=== PATIENT | male | born 1950 | race Caucasian/White ===

== ENCOUNTER 2017-06-13 14:15 | Inpatient (IN) | payer OTHER ==
[~2017-06-13] VITALS: Ht 176.5 cm; Wt 148.6 kg
[2017-06-13 11:37] VITALS: BP 134/59
[2017-06-13 12:43] LABS: APPEARANCE,URINE Clear (CLEAR); BILIRUBIN,URINE Negative (NEGATIVE); COLOR,URINE Yellow (YELLOW); GLUCOSE, URINE (UA) 250 mg/dL (NEGATIVE); KETONES,URINE Negative (NEGATIVE); LEUKOCYTE ESTERASE ,URINE Negative (NEGATIVE); NITRATE,URINE Negative (NEGATIVE); OCCULT BLOOD,URINE Negative (NEGATIVE); PH,URINE 5.5 (5.0-8.0); PROTEIN,URINE POS 2+ (NEGATIVE); UROBILINOGEN,URINE 0.2 mg/dL (0.2-1.0)
[2017-06-13 12:54] LABS: CREATININE 1.3 mg/dL (0.5-1.5); POTASSIUM 4.7 mmol/L (3.5-5.1)
[2017-06-13 13:05] LABS: BACTERIA,URINE Rare /HPF (None Seen); RBC,URINE 0-1 /HPF (0-1); SQUAMOUS EPITHELIAL CELL,UR Rare /HPF (0-2); WBC,URINE 0-1 /HPF (0-1)
[~2017-06-13 14:15] MED LIST: ALBUTEROL IH; AMLO5TAB2 PO; ASPI-1181 PO; CARV25TA PO; FURO40TA5 PO; INSU100I3 SQ; INSULIN NPH SQ; ISOS60TA4 PO; LORA10TA7 PO; METF750T2 PO; PRIM50TA29 PO; ROSU40TA20 PO; SPIR25TA6 PO
[2017-06-16] VITALS (19 sets, daily range): BP systolic 107–153; BP diastolic 36–71
[2017-06-16] MEDS: CEFAZOLIN SODIUM 1 GM VIAL IVP SCH ×2 (05:00→08:30)
[2017-06-16] MEDS ORDERED: SODIUM CHLORIDE 0.9% 1000ML 1,000 ML IV ONE (06:49)
[2017-06-16] MEDS ORDERED: CEFAZOLIN SODIUM 1 GM VIAL ONE (07:40)
[2017-06-16] MEDS ORDERED: BUPIVACAINE/PF 0.25% 30ML VIAL IJ ONE (07:40)
[2017-06-16] MEDS ORDERED: EPINEPHRINE 1 MG/ML AMPULE ONE (07:41)
[2017-06-16] MEDS ORDERED: PROPOFOL 10 MG/ML 20ML VIAL IV ONE (07:56)
[2017-06-16] MEDS ORDERED: FENTANYL CITRATE PF 50 MCG/1 ML 2ML VIAL ONE ×3 (07:56→10:58)
[2017-06-16] MEDS ORDERED: MIDAZOLAM HCL 1 MG/ML 2ML VIAL ONE (07:56)
[2017-06-16] MEDS ORDERED: ROCURONIUM BROMIDE 10MG/1ML 5ML VL ONE ×2 (07:57→12:24)
[2017-06-16] MEDS ORDERED: LIDOCAINE PF 2% 5ML ABBOJECT ONE (07:57)
[2017-06-16] MEDS ORDERED: ROPIVACAINE 0.5% 5MG/ML 30ML IJ ONE (07:59)
[2017-06-16] MEDS ORDERED: SUCCINYLCHOLINE CHLORIDE 20 MG/ML 10 ML VIAL ONE (07:59)
[2017-06-16] MEDS ORDERED: EPHEDRINE SULFATE 50 MG/ML AMPULE ONE (08:41)
[2017-06-16] MEDS: TRANEXAMIC ACID 1000MG/10ML IV ONE ×2 (08:45→10:35)
[2017-06-16] MEDS ORDERED: VANCOMYCIN HCL 1 GM VIAL ONE (09:58)
[2017-06-16] MEDS ORDERED: CALCIUM CARBONATE 500 MG TABLET PO PRN (11:00)
[2017-06-16] MEDS ORDERED: KETOROLAC TROMETHAMINE 15MG/ML IV PRN (11:00)
[2017-06-16] MEDS ORDERED: POTASSIUM CHLORIDE 20 MEQ ERTAB PO PRN (11:00)
[2017-06-16] MEDS ORDERED: DiphenhydrAMINE HCL 50 MG/ML VIAL IVP PRN (11:00)
[2017-06-16] MEDS ORDERED: POTASSIUM CHLORIDE 10% ELIXIR 20 MEQ/15 ML UDCUP PO PRN (11:00)
[2017-06-16] MEDS ORDERED: TEMAZEPAM 15 MG CAPSULE PO PRN (11:00)
[2017-06-16] MEDS ORDERED: POTASSIUM CHLORIDE 20MEQ/100ML 100 ML IV PRN (11:00)
[2017-06-16] MEDS ORDERED: FERROUS FUMARATE 324 MG TABLET PO PRN (11:00)
[2017-06-16] MEDS ORDERED: ONDANSETRON HCL 4 MG/2 ML VIAL IVP PRN (11:00)
[2017-06-16] MEDS ORDERED: TRAMADOL HCL 50 MG TABLET PO PRN (11:00)
[2017-06-16] MEDS ORDERED: LIDOCAINE HCL-MPF 1% 2ML VIAL IVP PRN (11:00)
[2017-06-16] MEDS ORDERED: OXYCODONE HCL 5 MG TAB PO PRN ×2 (11:00)
[2017-06-16] MEDS ORDERED: KETOROLAC TROMETHAMINE 30MG/ML ONE (11:36)
[2017-06-16] MEDS ORDERED: MEPERIDINE-PF 25 MG/ML SYG ONE (11:37)
[2017-06-16] MEDS ORDERED: IPRATROPIUM/ALBUTEROL SULFATE 3 ML SOLUTION IH ONE (12:23)
[2017-06-16] MEDS ORDERED: SODIUM CHLORIDE 0.9% 10 ML VIAL ONE (12:25)
[2017-06-16] MEDS ORDERED: PHENYLEPHRINE HCL 10 MG/ML 1ML VIAL IV ONE (12:25)
[2017-06-16] MEDS ORDERED: NEOSTIGMINE 5MG/5ML SYR IV ONE (12:25)
[2017-06-16] MEDS ORDERED: ONDANSETRON HCL MDV 20ML 2 MG/ML VIAL ONE (12:25)
[2017-06-16] MEDS ORDERED: GLYCOPYRROLATE 0.2 MG/ML 5 ML VIAL ONE (12:25)
[2017-06-16] MEDS ORDERED: ONDANSETRON HCL 4 MG/2 ML VIAL ONE (12:25)
[2017-06-16] MEDS: ACETAMINOPHEN EXTRA STRENGTH 500 MG TABLET PO SCH ×2 (12:45→19:09)
[2017-06-16] MEDS: SODIUM CHLORIDE 0.9% 1000ML 1,000 ML IV SCH ×2 (12:45→20:55)
[2017-06-16] MEDS ORDERED: ALBUTEROL SULFATE 0.083% 2.5 MG/3 ML INH IH PRN (13:30)
[2017-06-16] MEDS: INSULIN HUMULIN R 100 UNIT/ML 3ML SQ SCH ×3 (13:53→21:00)
[2017-06-16] MEDS: CEFAZOLIN 3GM /D5W 100ML 100 ML IV SCH ×2 (18:07→23:48)
[2017-06-16] MEDS: INSULIN LISPRO 100 UNIT/ML 3ML SQ SCH (18:14)
[2017-06-16] MEDS: PREGABALIN 25 MG CAP PO SCH (20:57)
[2017-06-16] MEDS: AMLODIPINE BESYLATE 5 MG TAB PO SCH (20:57)
[2017-06-16] MEDS: CARVEDILOL 25 MG TABLET PO SCH (20:57)
[2017-06-16] MEDS: CELECOXIB 200 MG CAP PO SCH (20:57)
[2017-06-16] MEDS: FAMOTIDINE 20MG TAB 20 MG TAB PO SCH (20:57)
[2017-06-16] MEDS: ASPIRIN 325 MG TABLET PO SCH (20:57)
[2017-06-16] MEDS: METFORMIN HCL 500 MG TABLET PO SCH (20:58)
[2017-06-16] MEDS: FUROSEMIDE 40 MG TABLET PO SCH (20:58)
[2017-06-16] MEDS: ATORVASTATIN CALCIUM 40 MG TABLET PO SCH (20:58)
[2017-06-16] MEDS: INSULIN NPH 100 UNIT/ML 3ML SQ SCH (21:17)
[2017-06-17] VITALS (8 sets, daily range): BP systolic 128–167; BP diastolic 55–74
[2017-06-17] MEDS: ACETAMINOPHEN EXTRA STRENGTH 500 MG TABLET PO SCH ×3 (03:59→19:46)
[2017-06-17 05:05] LABS: HEMATOCRIT 33.8 % (42-54); MEAN CORPUSCULAR HGB CONC 33.8 g/dL (32.0-36.0); MEAN CORPUSCULAR VOLUME 88.7 fL (79-99); PLATELET COUNT (AUTO) 196 K/uL (130-400); RED BLOOD CELL COUNT(AUTO) 3.81 MIL/uL (4.50-6.20); RED CELL DISTRIBUTION WIDTH 15.4 % (11.0-15.5); WHITE BLOOD COUNT (AUTO) 9.5 K/uL (4.8-10.8)
[2017-06-17 05:24] LABS: CREATININE 1.3 mg/dL (0.5-1.5); POTASSIUM 4.2 mmol/L (3.5-5.1)
[2017-06-17] MEDS: INSULIN HUMULIN R 100 UNIT/ML 3ML SQ SCH ×4 (06:38→20:20)
[2017-06-17] MEDS: SODIUM CHLORIDE 0.9% 1000ML 1,000 ML IV SCH (07:00)
[2017-06-17] MEDS: TAMSULOSIN HCL 0.4 MG CAP.ER.24H PO SCH (08:18)
[2017-06-17] MEDS: ASPIRIN 325 MG TABLET PO SCH ×2 (08:18→19:46)
[2017-06-17] MEDS: FUROSEMIDE 40 MG TABLET PO SCH ×2 (08:18→19:46)
[2017-06-17] MEDS: FAMOTIDINE 20MG TAB 20 MG TAB PO SCH ×2 (08:18→19:46)
[2017-06-17] MEDS: CARVEDILOL 25 MG TABLET PO SCH ×2 (08:19→19:45)
[2017-06-17] MEDS: PRIMIDONE 50 MG TAB PO SCH (08:19)
[2017-06-17] MEDS: AMLODIPINE BESYLATE 5 MG TAB PO SCH ×2 (08:19→19:46)
[2017-06-17] MEDS: CELECOXIB 200 MG CAP PO SCH ×2 (08:20→19:45)
[2017-06-17] MEDS: LORATADINE 10 MG TABLET PO SCH (08:20)
[2017-06-17] MEDS: POLYETHYLENE GLYCOL 3350 17 GM POWD.PACK PO SCH (08:20)
[2017-06-17] MEDS: SPIRONOLACTONE 25 MG TAB PO SCH (08:20)
[2017-06-17] MEDS: METFORMIN HCL 500 MG TABLET PO SCH ×2 (08:21→19:45)
[2017-06-17] MEDS: PREGABALIN 25 MG CAP PO SCH ×2 (08:29→19:45)
[2017-06-17] MEDS: ISOSORBIDE MONO 60 MG TAB.SR PO SCH (08:29)
[2017-06-17] MEDS: INSULIN NPH 100 UNIT/ML 3ML SQ SCH ×2 (09:22→20:20)
[2017-06-17] MEDS: INSULIN LISPRO 100 UNIT/ML 3ML SQ SCH ×3 (09:23→16:35)
[2017-06-17] MEDS: ATORVASTATIN CALCIUM 40 MG TABLET PO SCH (19:46)
[2017-06-18] MEDS: ACETAMINOPHEN EXTRA STRENGTH 500 MG TABLET PO SCH ×2 (03:32→10:49)
[2017-06-18 04:18] VITALS: BP 128/65
[2017-06-18] MEDS: INSULIN HUMULIN R 100 UNIT/ML 3ML SQ SCH ×3 (05:45→17:26)
[2017-06-18 07:00] VITALS: BP 144/69
[2017-06-18] MEDS: INSULIN LISPRO 100 UNIT/ML 3ML SQ SCH ×3 (07:31→17:28)
[2017-06-18] MEDS: INSULIN NPH 100 UNIT/ML 3ML SQ SCH (07:32)
[2017-06-18] MEDS ORDERED: ASPI-1012 PO (08:59)
[2017-06-18] MEDS ORDERED: HYDR-309 PO (08:59)
[2017-06-18] MEDS: TAMSULOSIN HCL 0.4 MG CAP.ER.24H PO SCH (09:00)
[2017-06-18] MEDS: POLYETHYLENE GLYCOL 3350 17 GM POWD.PACK PO SCH (09:03)
[2017-06-18] MEDS: ASPIRIN 325 MG TABLET PO SCH (09:03)
[2017-06-18] MEDS: LORATADINE 10 MG TABLET PO SCH (09:04)
[2017-06-18] MEDS: FAMOTIDINE 20MG TAB 20 MG TAB PO SCH (09:04)
[2017-06-18] MEDS: CELECOXIB 200 MG CAP PO SCH (09:04)
[2017-06-18] MEDS: ISOSORBIDE MONO 60 MG TAB.SR PO SCH (09:04)
[2017-06-18] MEDS: FUROSEMIDE 40 MG TABLET PO SCH (09:04)
[2017-06-18] MEDS: PRIMIDONE 50 MG TAB PO SCH (09:04)
[2017-06-18] MEDS: SPIRONOLACTONE 25 MG TAB PO SCH (09:05)
[2017-06-18] MEDS: AMLODIPINE BESYLATE 5 MG TAB PO SCH (09:05)
[2017-06-18] MEDS: METFORMIN HCL 500 MG TABLET PO SCH (09:05)
[2017-06-18] MEDS: CARVEDILOL 25 MG TABLET PO SCH (09:05)
[2017-06-18] MEDS: PREGABALIN 25 MG CAP PO SCH (10:49)
[2017-06-18 11:00] VITALS: BP 142/70
[2017-06-18 15:00] VITALS: BP 116/65
[2017-06-19] MEDS ORDERED: BISACODYL 10 MG SUPP.RECT RC PRN (11:00)
== END 2017-06-18 19:00 | disposition home health service (06) | DRG 470 ==
LOC: EDSTATUS 14:15 → DAHIP 06-16 06:27 → 4AH 06-16 11:32 → EDSEX 06-16 14:15
PROVIDERS: ADMIT Orthopaedic Surgery; ATTEND Orthopaedic Surgery
PROC: 0SRC0J9 Replacement of Right Knee Joint with Synthetic Substitute, Cemented, Open Approach (ICD-10-PCS; principal; 2017-06-16 08:00)
DX: M17.11 Unilateral primary osteoarthritis, right knee (principal); E11.9 Type 2 diabetes mellitus without complications; I10 Essential (primary) hypertension; I25.10 Atherosclerotic heart disease of native coronary artery without angina pectoris; E78.5 Hyperlipidemia, unspecified; G89.29 Other chronic pain; Z95.1 Presence of aortocoronary bypass graft
CPT/HCPCS: 36415; 80048; 81001; 82948; 85027; 88305; 88311; 94640; A4218; J0171; J0330; J0690; J1815; J1885; J2001; J2175; J2250; J2370; J2405; J2704; J2710; J2795; J3010; J3370; J3490; J7030

== ENCOUNTER 2018-07-20 14:00 | Emergency (ER) | payer OTHER ==
[~2018-07-20 14:00] MED LIST changes: -AMLO5TAB2 PO; +AMLO5TAB9 PO; +ASPI-1012 PO; -ASPI-1181 PO; +HYDR-4457 PO
[2018-07-20 14:26] LABS: APPEARANCE,URINE CLOUDY (CLEAR); BILIRUBIN,URINE NEGATIVE (NEGATIVE); COLOR,URINE YELLOW (YELLOW); GLUCOSE, URINE (UA) NEGATIVE (NEGATIVE); KETONES,URINE NEGATIVE (NEGATIVE); LEUKOCYTE ESTERASE ,URINE LARGE (NEGATIVE); NITRATE,URINE POSITIVE (NEGATIVE); OCCULT BLOOD,URINE LARGE (NEGATIVE); PROTEIN,URINE 100 mg/dL (NEGATIVE); UROBILINOGEN,URINE 0.2 mg/dL (0.2-1.0)
[2018-07-20] MEDS ORDERED: IBUPROFEN 600 MG TABLET ONE (14:46)
[2018-07-20] MEDS ORDERED: LIDOCAINE HCL-MPF 1% 2ML VIAL ONE (14:46)
[2018-07-20] MEDS ORDERED: CEFTRIAXONE SODIUM 1 GM ONE (14:46)
[2018-07-20 14:49] LABS: WBC,URINE 26-50 /HPF (0-1)
[2018-07-20 14:50] LABS: BACTERIA,URINE Few /HPF (None Seen); SQUAMOUS EPITHELIAL CELL,UR Rare /HPF (0-2)
[2018-07-20 15:15] LABS: EOSINOPHILS % (AUTO) 2.9 % (0.0-8.0); HEMATOCRIT 34.8 % (42-54); LYMPHOCYTES % (AUTO) 12.8 % (21.0-51.0); MEAN CORPUSCULAR HEMOGLOBIN 29.3 pg (27.0-33.0); MEAN CORPUSCULAR HGB CONC 33.4 g/dL (32.0-36.0); MEAN CORPUSCULAR VOLUME 87.7 fL (79-99); MONOCYTES % (AUTO) 8.4 % (3.0-13.0); NEUTROPHILS % (AUTO) 74.9 % (40.0-77.0); PLATELET COUNT (AUTO) 337 K/uL (130-400); RED BLOOD CELL COUNT(AUTO) 3.97 MIL/uL (4.50-6.20); RED CELL DISTRIBUTION WIDTH 16.1 % (11.0-15.5); WHITE BLOOD COUNT (AUTO) 10.6 K/uL (4.8-10.8)
[2018-07-20 15:23] LABS: CREATININE 1.5 mg/dL (0.5-1.5); POTASSIUM 4.3 mmol/L (3.5-5.1)
[2018-07-20 15:28] LABS: BILIRUBIN,TOTAL 0.5 mg/dL (0.2-1.0); TOTAL PROTEIN, SERUM 7.8 g/dL (6.0-8.3)
== END 2018-07-20 16:14 | disposition home or self-care (01) ==
LOC: EDH 14:00
DX: N45.1 Epididymitis (principal); I11.0 Hypertensive heart disease with heart failure; I50.9 Heart failure, unspecified; E11.9 Type 2 diabetes mellitus without complications; E78.5 Hyperlipidemia, unspecified; Z72.0 Tobacco use
CPT/HCPCS: 36415; 76870; 80053; 81001; 85025; 87077; 87088; 87186; 96372; 99285; J0696; J3490

== ENCOUNTER 2018-11-26 17:42 | Inpatient (IN) | payer OTHER ==
[~2018-11-26] VITALS: Ht 175.3 cm; Wt 138.2 kg
[~2018-11-26 17:42] MED LIST changes: -METF750T2 PO; +METF750T46 PO; -ROSU40TA20 PO; +ROSU40TA21 PO
[2018-11-26] MEDS ORDERED: FUROSEMIDE 10 MG/ML 4ML VIAL ONE (18:23)
[2018-11-26] MEDS ORDERED: CEFTRIAXONE SODIUM 2 GM VIAL ONE (18:23)
[2018-11-26 18:43] LABS: BASOPHILS % (AUTO) 0.4 % (0.0-5.0); EOSINOPHILS % (AUTO) 2.6 % (0.0-8.0); HEMATOCRIT 39.6 % (42-54); LYMPHOCYTES % (AUTO) 5.2 % (21.0-51.0); MEAN CORPUSCULAR HEMOGLOBIN 29.5 pg (27.0-33.0); MEAN CORPUSCULAR HGB CONC 32.9 g/dL (32.0-36.0); MEAN CORPUSCULAR VOLUME 89.5 fL (79-99); MONOCYTES % (AUTO) 3.7 % (3.0-13.0); NEUTROPHILS % (AUTO) 88.1 % (40.0-77.0); PLATELET COUNT (AUTO) 208 K/uL (130-400); RED BLOOD CELL COUNT(AUTO) 4.42 MIL/uL (4.50-6.20); RED CELL DISTRIBUTION WIDTH 15.8 % (11.0-15.5); WHITE BLOOD COUNT (AUTO) 15.4 K/uL (4.8-10.8)
[2018-11-26 19:00] LABS: INR 1.02 (0.85-1.15); PARTIAL THROMBOPLASTIN TIME 26.4 SEC (26.3-35.5); PROTHROMBIN TIME 10.7 SEC (9.6-11.6)
[2018-11-26 19:05] LABS: CREATININE 1.3 mg/dL (0.5-1.5); POTASSIUM 5.9 mmol/L (3.5-5.1)
[2018-11-26 19:16] LABS: ALBUMIN 3.5 g/dL (3.5-5.0); BILIRUBIN,TOTAL 0.5 mg/dL (0.2-1.0)
[2018-11-26 19:19] LABS: CREATINE KINASE, TOTAL 148 U/L (21-232)
[2018-11-26 19:20] LABS: MYOGLOBIN 55 ng/mL (10-92); TROPONIN I < 0.04 ng/mL (0.00-0.06)
[2018-11-26 19:24] LABS: B-TYPE NATRIURETIC PEPTIDE 27 pg/mL (0-100)
[2018-11-26] MEDS ORDERED: VANCOMYCIN 2 GM in SODIUM CHLORIDE 0.9% 500ML 500 ML IV SCH (19:30)
[2018-11-26] MEDS: SODIUM CHLORIDE 0.9% 1000ML 1,000 ML IV SCH (20:06)
[2018-11-26] MEDS ORDERED: SODIUM CHLORIDE 0.9% 500ML 500 ML IV ONE (20:13)
[2018-11-26] MEDS ORDERED: LACTULOSE 20 GM/30 ML UDCUP PO PRN (20:15)
[2018-11-26] MEDS ORDERED: ACETAMINOPHEN 325 MG TAB PO PRN ×2 (20:15)
[2018-11-26] MEDS ORDERED: ONDANSETRON HCL 4 MG/2 ML VIAL IV PRN (20:15)
[2018-11-26] MEDS ORDERED: VANCOMYCIN PROTOCOL PER PHARMACY IV SCH (20:15)
[2018-11-26] MEDS ORDERED: SODIUM CHLORIDE 0.9% 500ML 500 ML IV SCH (20:15)
[2018-11-26] MEDS ORDERED: COMPOUND IV REFRIGERATED 1 EACH IVSOLN MISC PRN (20:45)
[2018-11-26 20:47] LABS: APPEARANCE,URINE Clear (CLEAR); BILIRUBIN,URINE Negative (NEGATIVE); COLOR,URINE Yellow (YELLOW); GLUCOSE, URINE (UA) Negative (NEGATIVE); KETONES,URINE Negative (NEGATIVE); LEUKOCYTE ESTERASE ,URINE Negative (NEGATIVE); NITRATE,URINE Negative (NEGATIVE); OCCULT BLOOD,URINE Negative (NEGATIVE); PROTEIN,URINE POS 1+ mg/dL (NEGATIVE); UROBILINOGEN,URINE 0.2 mg/dL (0.2-1.0)
[2018-11-26] MEDS: FAMOTIDINE 20MG TAB 20 MG TAB PO SCH (21:00)
[2018-11-26 21:02] LABS: BACTERIA,URINE None Seen /HPF (None Seen); MUCUS,URINE Few LPF (None Seen); RBC,URINE 0-1 /HPF (0-1); SQUAMOUS EPITHELIAL CELL,UR 0-2 /HPF (0-2); WBC,URINE 0-1 /HPF (0-1)
[2018-11-26] MEDS ORDERED: MORPHINE SULFATE 4 MG/1ML SYG IV PRN (21:15)
[2018-11-26] MEDS ORDERED: FAMOTIDINE 20MG TAB 20 MG TAB ONE (22:42)
[2018-11-26] MEDS ORDERED: SODIUM CHLORIDE 0.9% 1000ML 1,000 ML IV ONE (22:42)
[2018-11-27 03:10] VITALS: BP 155/95
[2018-11-27] MEDS: ZOSYN 3.375GM+NS 50ML 50 ML IV SCH ×3 (04:06→21:52)
[2018-11-27 04:57] LABS: BASOPHILS % (AUTO) 0.4 % (0.0-5.0); EOSINOPHILS % (AUTO) 0.3 % (0.0-8.0); HEMATOCRIT 35.5 % (42-54); LYMPHOCYTES % (AUTO) 4.5 % (21.0-51.0); MEAN CORPUSCULAR HEMOGLOBIN 29.6 pg (27.0-33.0); MEAN CORPUSCULAR HGB CONC 33.5 g/dL (32.0-36.0); MEAN CORPUSCULAR VOLUME 88.5 fL (79-99); MONOCYTES % (AUTO) 3.9 % (3.0-13.0); NEUTROPHILS % (AUTO) 90.9 % (40.0-77.0); PLATELET COUNT (AUTO) 193 K/uL (130-400); RED BLOOD CELL COUNT(AUTO) 4.01 MIL/uL (4.50-6.20); RED CELL DISTRIBUTION WIDTH 15.7 % (11.0-15.5); WHITE BLOOD COUNT (AUTO) 15.7 K/uL (4.8-10.8)
[2018-11-27 05:05] LABS: CREATININE 1.6 mg/dL (0.5-1.5); POTASSIUM 4.4 mmol/L (3.5-5.1)
[2018-11-27] MEDS ORDERED: ASPI-1181 PO (05:17)
[2018-11-27] MEDS ORDERED: PENI500T2 PO (05:17)
[2018-11-27] MEDS ORDERED: FERS325 PO (05:17)
[2018-11-27] MEDS ORDERED: MVIT PO (05:17)
[2018-11-27] MEDS ORDERED: CYAN100099 PO (05:17)
[2018-11-27] MEDS ORDERED: LOSA100T58 PO (05:17)
[2018-11-27] MEDS ORDERED: PRIM1POW PO (05:17)
[2018-11-27] MEDS ORDERED: NPH,100V11 SQ (05:17)
[2018-11-27] MEDS ORDERED: CHOL1CRY2 MC (05:17)
[2018-11-27] MEDS ORDERED: LIRA0.6P SQ (05:17)
[2018-11-27] MEDS: SODIUM CHLORIDE 0.9% 1000ML 1,000 ML IV SCH (06:06)
[2018-11-27] MEDS ORDERED: INSULIN HUMULIN R 100 UNIT/ML 3ML SQ SCH (07:30)
[2018-11-27 07:56] VITALS: BP 136/70
[2018-11-27] MEDS ORDERED: FLU VACC QS2019-20 36MOS UP/PF 60 MCG/0.5 ML ML IM ONE (09:00)
[2018-11-27] MEDS: FAMOTIDINE 20MG TAB 20 MG TAB PO SCH ×2 (10:12→21:52)
[2018-11-27] MEDS: ENOXAPARIN SODIUM 40 MG/0.4 ML SYRINGE SQ SCH (10:12)
[2018-11-27] MEDS: VANCOMYCIN 1.5 GM in SODIUM CHLORIDE 0.9% 250 ML IV SCH ×2 (10:17→21:52)
[2018-11-27] MEDS ORDERED: FUROSEMIDE 10 MG/ML 2ML VIAL IV SCH (11:15)
[2018-11-27 11:55] VITALS: BP 133/47
[2018-11-27] MEDS: INSULIN HUMULIN R 100 UNIT/ML 3ML SQ SCH ×3 (12:16→22:02)
[2018-11-27] MEDS: INSULIN LISPRO 100 UNIT/ML 3ML SQ SCH ×2 (12:17→17:43)
--- NOTE | 2018-11-27 15:06 | NUR ---
DCP CM met with pt discussed dc plans. Pt is independent prior to admission, lives at home w/spouse. Pt has a walker, cane, bedside commode, previously had [facility] from past surgery last year but not currently active. Denies any other equipments/services. Pt feels safe to go back home, spouse able to assist with transportation and needs as necessary. DC plan to home once stable. CM to cont to follow up. Addendum: 11/27/18 at 1508 by HAYLEY TAVAREZ LVN CM Amended: Links added.
[2018-11-27 15:58] VITALS: BP 162/96
[2018-11-27 19:28] VITALS: BP 186/82
[2018-11-27] MEDS: PRIMIDONE PO SCH (21:00)
[2018-11-27] MEDS: FUROSEMIDE 40 MG TABLET PO SCH (21:52)
[2018-11-27] MEDS: AMLODIPINE BESYLATE 5 MG TAB PO SCH (21:52)
[2018-11-27] MEDS: ATORVASTATIN CALCIUM 40 MG TABLET PO SCH (21:52)
[2018-11-27] MEDS: CARVEDILOL 25 MG TABLET PO SCH (21:53)
[2018-11-27 23:22] VITALS: BP 138/58
[2018-11-28 03:55] VITALS: BP 124/62
[2018-11-28] MEDS: ZOSYN 3.375GM+NS 50ML 50 ML IV SCH ×3 (06:00→22:03)
[2018-11-28 07:00] LABS: BASOPHILS % (AUTO) 0.5 % (0.0-5.0); EOSINOPHILS % (AUTO) 2.2 % (0.0-8.0); HEMATOCRIT 34.9 % (42-54); LYMPHOCYTES % (AUTO) 8.2 % (21.0-51.0); MEAN CORPUSCULAR HEMOGLOBIN 30.1 pg (27.0-33.0); MEAN CORPUSCULAR HGB CONC 33.3 g/dL (32.0-36.0); MEAN CORPUSCULAR VOLUME 90.4 fL (79-99); MONOCYTES % (AUTO) 8.2 % (3.0-13.0); NEUTROPHILS % (AUTO) 80.9 % (40.0-77.0); PLATELET COUNT (AUTO) 164 K/uL (130-400); RED BLOOD CELL COUNT(AUTO) 3.86 MIL/uL (4.50-6.20); RED CELL DISTRIBUTION WIDTH 15.5 % (11.0-15.5); WHITE BLOOD COUNT (AUTO) 10.8 K/uL (4.8-10.8)
[2018-11-28 07:18] LABS: CREATININE 1.3 mg/dL (0.5-1.5); POTASSIUM 3.9 mmol/L (3.5-5.1)
[2018-11-28 07:57] VITALS: BP 143/60
[2018-11-28] MEDS: INSULIN HUMULIN R 100 UNIT/ML 3ML SQ SCH ×4 (08:04→22:15)
[2018-11-28] MEDS ORDERED: INSULIN GLARGINE 100 UNITS/ML 10 ML VIAL SQ SCH (08:30)
[2018-11-28] MEDS: CHOLECALCIFEROL PO SCH (08:49)
[2018-11-28] MEDS: PRIMIDONE PO SCH ×2 (08:50→21:00)
[2018-11-28] MEDS: ENOXAPARIN SODIUM 40 MG/0.4 ML SYRINGE SQ SCH (09:05)
[2018-11-28] MEDS: LOSARTAN 100 MG TABLET PO SCH (09:05)
[2018-11-28] MEDS: MULTIVITAMIN TABLET PO SCH (09:05)
[2018-11-28] MEDS: FAMOTIDINE 20MG TAB 20 MG TAB PO SCH ×2 (09:05→22:04)
[2018-11-28] MEDS: AMLODIPINE BESYLATE 5 MG TAB PO SCH ×2 (09:05→22:04)
[2018-11-28] MEDS: FUROSEMIDE 40 MG TABLET PO SCH ×2 (09:06→22:04)
[2018-11-28] MEDS: ASPIRIN 81 MG EC TAB PO SCH (09:06)
[2018-11-28] MEDS: LORATADINE 10 MG TABLET PO SCH (09:06)
[2018-11-28] MEDS: ISOSORBIDE MONO 60 MG TAB.SR PO SCH (09:06)
[2018-11-28] MEDS: SPIRONOLACTONE 25 MG TAB PO SCH (09:07)
[2018-11-28] MEDS: CARVEDILOL 25 MG TABLET PO SCH ×2 (09:07→22:04)
[2018-11-28] MEDS: INSULIN LISPRO 100 UNIT/ML 3ML SQ SCH ×3 (09:22→18:03)
[2018-11-28] MEDS: VANCOMYCIN 1.5 GM in SODIUM CHLORIDE 0.9% 250 ML IV SCH ×2 (09:30→22:03)
[2018-11-28 11:39] VITALS: BP 123/79
[2018-11-28 16:36] VITALS: BP 143/76
[2018-11-28 19:44] VITALS: BP 151/63
[2018-11-28] MEDS: ATORVASTATIN CALCIUM 40 MG TABLET PO SCH (22:05)
[2018-11-28] MEDS: INSULIN GLARGINE 100 UNITS/ML 10 ML VIAL SQ SCH (22:14)
[2018-11-28 23:20] VITALS: BP 135/58
[2018-11-29 04:05] VITALS: BP 127/72
[2018-11-29] MEDS: ZOSYN 3.375GM+NS 50ML 50 ML IV SCH ×3 (05:39→22:31)
[2018-11-29 05:41] LABS: BASOPHILS % (AUTO) 0.5 % (0.0-5.0); EOSINOPHILS % (AUTO) 4.4 % (0.0-8.0); HEMATOCRIT 31.1 % (42-54); LYMPHOCYTES % (AUTO) 12.1 % (21.0-51.0); MEAN CORPUSCULAR HEMOGLOBIN 30.1 pg (27.0-33.0); MEAN CORPUSCULAR HGB CONC 33.5 g/dL (32.0-36.0); MONOCYTES % (AUTO) 9.7 % (3.0-13.0); NEUTROPHILS % (AUTO) 73.3 % (40.0-77.0); PLATELET COUNT (AUTO) 182 K/uL (130-400); RED BLOOD CELL COUNT(AUTO) 3.45 MIL/uL (4.50-6.20); RED CELL DISTRIBUTION WIDTH 15.4 % (11.0-15.5); WHITE BLOOD COUNT (AUTO) 9.6 K/uL (4.8-10.8)
[2018-11-29 05:46] LABS: CREATININE 1.4 mg/dL (0.5-1.5); POTASSIUM 4.2 mmol/L (3.5-5.1)
[2018-11-29 06:14] LABS: HEMOGLOBIN A1C 7.1 % (4.0-6.0)
[2018-11-29] MEDS: INSULIN HUMULIN R 100 UNIT/ML 3ML SQ SCH ×4 (06:44→22:34)
[2018-11-29] MEDS: INSULIN LISPRO 100 UNIT/ML 3ML SQ SCH ×3 (06:45→17:57)
[2018-11-29 07:49] VITALS: BP 117/64
[2018-11-29] MEDS: PRIMIDONE PO SCH ×2 (09:00→21:00)
[2018-11-29] MEDS: CHOLECALCIFEROL PO SCH (09:00)
[2018-11-29] MEDS: ENOXAPARIN SODIUM 40 MG/0.4 ML SYRINGE SQ SCH (09:24)
[2018-11-29] MEDS: VANCOMYCIN 1.5 GM in SODIUM CHLORIDE 0.9% 250 ML IV SCH ×2 (09:24→22:30)
[2018-11-29] MEDS: MULTIVITAMIN TABLET PO SCH (09:25)
[2018-11-29] MEDS: ASPIRIN 81 MG EC TAB PO SCH (09:25)
[2018-11-29] MEDS: SPIRONOLACTONE 25 MG TAB PO SCH (09:25)
[2018-11-29] MEDS: FUROSEMIDE 40 MG TABLET PO SCH ×2 (09:25→22:40)
[2018-11-29] MEDS: ISOSORBIDE MONO 60 MG TAB.SR PO SCH (09:25)
[2018-11-29] MEDS: LORATADINE 10 MG TABLET PO SCH (09:26)
[2018-11-29] MEDS: CARVEDILOL 25 MG TABLET PO SCH ×2 (09:26→22:41)
[2018-11-29] MEDS: AMLODIPINE BESYLATE 5 MG TAB PO SCH ×2 (09:26→22:40)
[2018-11-29] MEDS: FAMOTIDINE 20MG TAB 20 MG TAB PO SCH ×2 (09:26→22:40)
[2018-11-29] MEDS: LOSARTAN 100 MG TABLET PO SCH (09:26)
[2018-11-29] MEDS: INSULIN GLARGINE 100 UNITS/ML 10 ML VIAL SQ SCH ×2 (09:55→22:34)
[2018-11-29 14:19] VITALS: BP 132/73
[2018-11-29 16:29] VITALS: BP 152/76
[2018-11-29 19:55] VITALS: BP 140/70
[2018-11-29] MEDS: ATORVASTATIN CALCIUM 40 MG TABLET PO SCH (22:40)
[2018-11-29 23:13] VITALS: BP 147/77
[2018-11-30 03:58] VITALS: BP 125/55
[2018-11-30 04:58] LABS: BASOPHILS % (AUTO) 0.6 % (0.0-5.0); EOSINOPHILS % (AUTO) 5.2 % (0.0-8.0); HEMATOCRIT 31.8 % (42-54); LYMPHOCYTES % (AUTO) 13.4 % (21.0-51.0); MEAN CORPUSCULAR HEMOGLOBIN 30.6 pg (27.0-33.0); MEAN CORPUSCULAR VOLUME 89.9 fL (79-99); MONOCYTES % (AUTO) 11.2 % (3.0-13.0); NEUTROPHILS % (AUTO) 69.6 % (40.0-77.0); PLATELET COUNT (AUTO) 209 K/uL (130-400); RED BLOOD CELL COUNT(AUTO) 3.53 MIL/uL (4.50-6.20); RED CELL DISTRIBUTION WIDTH 15.1 % (11.0-15.5); WHITE BLOOD COUNT (AUTO) 9.8 K/uL (4.8-10.8)
[2018-11-30 05:11] LABS: CREATININE 1.5 mg/dL (0.5-1.5)
[2018-11-30] MEDS: ZOSYN 3.375GM+NS 50ML 50 ML IV SCH ×3 (05:30→22:44)
[2018-11-30] MEDS: INSULIN GLARGINE 100 UNITS/ML 10 ML VIAL SQ SCH ×2 (06:27→22:36)
[2018-11-30] MEDS: INSULIN HUMULIN R 100 UNIT/ML 3ML SQ SCH ×4 (06:27→22:37)
[2018-11-30 07:00] VITALS: BP 153/72
[2018-11-30] MEDS: PRIMIDONE PO SCH ×2 (09:00→21:00)
[2018-11-30] MEDS: CHOLECALCIFEROL PO SCH (09:00)
[2018-11-30] MEDS: SPIRONOLACTONE 25 MG TAB PO SCH (09:14)
[2018-11-30] MEDS: FAMOTIDINE 20MG TAB 20 MG TAB PO SCH ×2 (09:14→22:42)
[2018-11-30] MEDS: LOSARTAN 100 MG TABLET PO SCH (09:14)
[2018-11-30] MEDS: ASPIRIN 81 MG EC TAB PO SCH (09:14)
[2018-11-30] MEDS: ISOSORBIDE MONO 60 MG TAB.SR PO SCH (09:14)
[2018-11-30] MEDS: LORATADINE 10 MG TABLET PO SCH (09:14)
[2018-11-30] MEDS: AMLODIPINE BESYLATE 5 MG TAB PO SCH ×2 (09:15→22:42)
[2018-11-30] MEDS: MULTIVITAMIN TABLET PO SCH (09:15)
[2018-11-30] MEDS: FUROSEMIDE 40 MG TABLET PO SCH ×2 (09:15→22:43)
[2018-11-30] MEDS: CARVEDILOL 25 MG TABLET PO SCH ×2 (09:16→22:42)
[2018-11-30] MEDS: INSULIN LISPRO 100 UNIT/ML 3ML SQ SCH ×3 (09:17→17:48)
[2018-11-30] MEDS: VANCOMYCIN 1.5 GM in SODIUM CHLORIDE 0.9% 250 ML IV SCH ×2 (09:18→12:58)
[2018-11-30] MEDS: ENOXAPARIN SODIUM 40 MG/0.4 ML SYRINGE SQ SCH (09:30)
[2018-11-30 11:00] VITALS: BP 125/67
--- NOTE | 2018-11-30 15:03 | NUR ---
CM Note: declined placement CM met with pt discussed possible short term placement rehab and abx therapy depending on Dr Bunch's recommendations for abx. Pt at this time declined placement, prefer to go back home, stated spouse will be able to assist with needs at home. DC plan to home once stable. Primary nurse aware. CM to cont to follow up.
[2018-11-30 16:00] VITALS: BP 125/67
[2018-11-30 20:00] VITALS: BP 163/84
[2018-11-30] MEDS: ATORVASTATIN CALCIUM 40 MG TABLET PO SCH (22:41)
[2018-11-30] MEDS ORDERED: GUAIFENESIN SUGAR-FREE 100 MG/5 ML UDCUP PO PRN (23:00)
[2018-12-01] VITALS (7 sets, daily range): BP systolic 117–165; BP diastolic 55–95
[2018-12-01] MEDS: ZOSYN 3.375GM+NS 50ML 50 ML IV SCH ×3 (05:04→20:07)
[2018-12-01 05:17] LABS: BASOPHILS % (AUTO) 0.7 % (0.0-5.0); EOSINOPHILS % (AUTO) 5.7 % (0.0-8.0); HEMATOCRIT 30.6 % (42-54); LYMPHOCYTES % (AUTO) 13.8 % (21.0-51.0); MEAN CORPUSCULAR HEMOGLOBIN 30.3 pg (27.0-33.0); MEAN CORPUSCULAR VOLUME 89.1 fL (79-99); MONOCYTES % (AUTO) 11.1 % (3.0-13.0); NEUTROPHILS % (AUTO) 68.7 % (40.0-77.0); NUCLEATED RED BLOOD CELLS 0.1 % (0.0-0.19); PLATELET COUNT (AUTO) 232 K/uL (130-400); RED BLOOD CELL COUNT(AUTO) 3.43 MIL/uL (4.50-6.20); RED CELL DISTRIBUTION WIDTH 15.5 % (11.0-15.5); WHITE BLOOD COUNT (AUTO) 8.4 K/uL (4.8-10.8)
[2018-12-01 05:34] LABS: CREATININE 1.5 mg/dL (0.5-1.5); POTASSIUM 3.8 mmol/L (3.5-5.1)
[2018-12-01] MEDS: INSULIN GLARGINE 100 UNITS/ML 10 ML VIAL SQ SCH (06:18)
[2018-12-01] MEDS: INSULIN HUMULIN R 100 UNIT/ML 3ML SQ SCH ×4 (06:20→20:21)
[2018-12-01] MEDS: FAMOTIDINE 20MG TAB 20 MG TAB PO SCH ×2 (08:35→20:07)
[2018-12-01] MEDS: ASPIRIN 81 MG EC TAB PO SCH (08:35)
[2018-12-01] MEDS: LORATADINE 10 MG TABLET PO SCH (08:35)
[2018-12-01] MEDS: CARVEDILOL 25 MG TABLET PO SCH ×2 (08:36→20:07)
[2018-12-01] MEDS: LOSARTAN 100 MG TABLET PO SCH (08:36)
[2018-12-01] MEDS: FUROSEMIDE 40 MG TABLET PO SCH ×2 (08:36→20:07)
[2018-12-01] MEDS: SPIRONOLACTONE 25 MG TAB PO SCH (08:36)
[2018-12-01] MEDS: AMLODIPINE BESYLATE 5 MG TAB PO SCH ×2 (08:37→20:07)
[2018-12-01] MEDS: ISOSORBIDE MONO 60 MG TAB.SR PO SCH (08:37)
[2018-12-01] MEDS: MULTIVITAMIN TABLET PO SCH (08:37)
[2018-12-01] MEDS: ENOXAPARIN SODIUM 40 MG/0.4 ML SYRINGE SQ SCH (08:38)
[2018-12-01] MEDS: INSULIN LISPRO 100 UNIT/ML 3ML SQ SCH ×6 (08:40→18:31)
[2018-12-01] MEDS: CHOLECALCIFEROL PO SCH (09:00)
[2018-12-01] MEDS: PRIMIDONE PO SCH ×2 (09:00→21:00)
--- NOTE | 2018-12-01 12:35 | NUR ---
CM Note: [facility] pending ins auth and acceptance CM met w/pt discussed MD recommendations for LTAC, pt will need iv abx, pt agreeable at this time, DEMAR signed for [facility]. Faxed order and clinicals, confirmation received. Spoke to Jenifer w/[facility], will come eval pt. Pt pending ins auth and acceptance. Primary nurse aware. CM to cont to follow up.
[2018-12-01] MEDS: VANCOMYCIN 1.25 GM in SODIUM CHLORIDE 0.9% 250 ML IV SCH ×2 (13:21→21:55)
--- NOTE | 2018-12-01 17:51 | NUR ---
Nutrition Intervention: Nutrition screen based on LOS x 5 days. Pt. on 75gm CCD diet with good p.o. intake, as per pt. Labs reviewed(Alb 3.5, BG 297, HgbA1c 7.1%). SR-22, right lower leg cellulitis. Pt. with 3+ edema to RLE. BMI: 46.6, morbid obesity. Pt. educated on Low Sodium Diabetic diet and provided with education material. Pt. verbalized understanding. Recommendations: 1) Rec. 75gm CCD Heart Healthy diet. 2) Low Sodium Diabetic diet education given to patient. 3) Continue to monitor pt's nutritional status. 4) Consult RD as nutrition concerns arise. Addendum: 12/01/18 at [address] Amended: Links added.
[2018-12-01] MEDS: ATORVASTATIN CALCIUM 40 MG TABLET PO SCH (20:07)
[2018-12-01] MEDS ORDERED: INSULIN GLARGINE 100 UNITS/ML 10 ML VIAL SQ SCH (21:00)
[2018-12-01] MEDS: FLUCONAZOLE 200 MG/NS 100 ML 100 ML IV SCH (21:55)
[2018-12-02 04:00] VITALS: BP 128/68
[2018-12-02] MEDS: ZOSYN 3.375GM+NS 50ML 50 ML IV SCH ×3 (05:13→20:25)
[2018-12-02] MEDS: INSULIN HUMULIN R 100 UNIT/ML 3ML SQ SCH ×4 (06:27→20:47)
[2018-12-02] MEDS: FLU VACC QS2019-20 36MOS UP/PF 60 MCG/0.5 ML ML IM SCH (06:30)
[2018-12-02] MEDS ORDERED: INSULIN GLARGINE 100 UNITS/ML 10 ML VIAL SQ SCH (07:30)
[2018-12-02 08:00] VITALS: BP 138/59
[2018-12-02] MEDS: CHOLECALCIFEROL PO SCH (09:00)
[2018-12-02] MEDS: PRIMIDONE PO SCH ×2 (09:00→20:25)
[2018-12-02] MEDS: LOSARTAN 100 MG TABLET PO SCH (09:56)
[2018-12-02] MEDS: FAMOTIDINE 20MG TAB 20 MG TAB PO SCH ×2 (09:56→20:24)
[2018-12-02] MEDS: FUROSEMIDE 40 MG TABLET PO SCH ×2 (09:57→20:24)
[2018-12-02] MEDS: SPIRONOLACTONE 25 MG TAB PO SCH (09:57)
[2018-12-02] MEDS: ASPIRIN 81 MG EC TAB PO SCH (09:57)
[2018-12-02] MEDS: LORATADINE 10 MG TABLET PO SCH (09:57)
[2018-12-02] MEDS: MULTIVITAMIN TABLET PO SCH (09:57)
[2018-12-02] MEDS: ISOSORBIDE MONO 60 MG TAB.SR PO SCH (09:57)
[2018-12-02] MEDS: ENOXAPARIN SODIUM 40 MG/0.4 ML SYRINGE SQ SCH (09:58)
[2018-12-02] MEDS: CARVEDILOL 25 MG TABLET PO SCH ×2 (09:58→20:24)
[2018-12-02] MEDS: AMLODIPINE BESYLATE 5 MG TAB PO SCH ×2 (09:58→20:23)
[2018-12-02] MEDS: INSULIN LISPRO 100 UNIT/ML 3ML SQ SCH ×4 (10:09→12:46)
[2018-12-02] MEDS: VANCOMYCIN 1.25 GM in SODIUM CHLORIDE 0.9% 250 ML IV SCH ×2 (10:40→20:26)
[2018-12-02 12:00] VITALS: BP 111/67
--- NOTE | 2018-12-02 14:28 | NUR ---
CM Note: [facility] pending ins auth Spoke to Jenifer Rosales, updated clinicals received and [facility]. Pt pending ins auth at this time. MOT semi-filled pending to be completed once pt has approval, flagged in chart. EMS arranged and faxed for today, primary nurse to call [facility] once pt ready to DC. Primary nurse aware. CM to cont to follow up.
[2018-12-02 16:00] VITALS: BP 146/78
[2018-12-02] MEDS ORDERED: TRAMADOL HCL 50 MG TABLET PO PRN (16:30)
[2018-12-02] MEDS ORDERED: INSULIN LISPRO 100 UNIT/ML 3ML SQ SCH (17:00)
[2018-12-02 17:13] LABS: INR 1.05 (0.85-1.15)
--- NOTE | 2018-12-02 19:30 | NUR ---
md visit dr. pate to see patient with clipping to bilateral great toes, dressing applied, tolerated well
[2018-12-02 19:54] VITALS: BP 145/66
[2018-12-02] MEDS: ATORVASTATIN CALCIUM 40 MG TABLET PO SCH (20:24)
[2018-12-02] MEDS: INSULIN GLARGINE 100 UNITS/ML 10 ML VIAL SQ SCH (20:46)
[2018-12-02] MEDS: FLUCONAZOLE 200 MG/NS 100 ML 100 ML IV SCH (21:06)
[2018-12-03 01:15] VITALS: BP 145/72
[2018-12-03] MEDS: ZOSYN 3.375GM+NS 50ML 50 ML IV SCH ×3 (04:13→19:37)
[2018-12-03 04:45] VITALS: BP 124/64
[2018-12-03 05:35] LABS: HEMATOCRIT 33.4 % (42-54); MEAN CORPUSCULAR HEMOGLOBIN 29.6 pg (27.0-33.0); MEAN CORPUSCULAR HGB CONC 33.1 g/dL (32.0-36.0); MEAN CORPUSCULAR VOLUME 89.4 fL (79-99); NUCLEATED RED BLOOD CELLS 0.1 % (0.0-0.19); PLATELET COUNT (AUTO) 290 K/uL (130-400); RED BLOOD CELL COUNT(AUTO) 3.74 MIL/uL (4.50-6.20); RED CELL DISTRIBUTION WIDTH 15.5 % (11.0-15.5); WHITE BLOOD COUNT (AUTO) 8.4 K/uL (4.8-10.8)
[2018-12-03 05:50] LABS: CREATININE 1.6 mg/dL (0.5-1.5); MAGNESIUM 2.1 mg/dL (1.80-2.40); PHOSPHORUS 3.9 mg/dL (2.5-4.9); POTASSIUM 3.8 mmol/L (3.5-5.1)
[2018-12-03 05:59] LABS: B-TYPE NATRIURETIC PEPTIDE 90 pg/mL (0-100)
[2018-12-03] MEDS: INSULIN HUMULIN R 100 UNIT/ML 3ML SQ SCH (06:04)
[2018-12-03 06:45] LABS: ERYTHROCYTE SEDIMENTATION RATE 127 MM/HR (0-20)
[2018-12-03 07:30] VITALS: BP 115/65
[2018-12-03] MEDS: CHOLECALCIFEROL PO SCH (09:00)
[2018-12-03] MEDS: PRIMIDONE PO SCH ×2 (09:00→19:26)
[2018-12-03] MEDS: LOSARTAN 100 MG TABLET PO SCH (09:56)
[2018-12-03] MEDS: LORATADINE 10 MG TABLET PO SCH (09:56)
[2018-12-03] MEDS: SPIRONOLACTONE 25 MG TAB PO SCH (09:56)
[2018-12-03] MEDS: FAMOTIDINE 20MG TAB 20 MG TAB PO SCH ×2 (09:56→19:37)
[2018-12-03] MEDS: MULTIVITAMIN TABLET PO SCH (09:56)
[2018-12-03] MEDS: ISOSORBIDE MONO 60 MG TAB.SR PO SCH (09:56)
[2018-12-03] MEDS: FUROSEMIDE 40 MG TABLET PO SCH ×2 (09:57→19:37)
[2018-12-03] MEDS: ENOXAPARIN SODIUM 40 MG/0.4 ML SYRINGE SQ SCH (09:59)
[2018-12-03] MEDS: ASPIRIN 81 MG EC TAB PO SCH (09:59)
[2018-12-03] MEDS: CARVEDILOL 25 MG TABLET PO SCH ×2 (09:59→19:38)
[2018-12-03] MEDS: AMLODIPINE BESYLATE 5 MG TAB PO SCH ×2 (09:59→19:37)
[2018-12-03 11:00] VITALS: BP 157/81
[2018-12-03] MEDS: VANCOMYCIN 1.25 GM in SODIUM CHLORIDE 0.9% 250 ML IV SCH ×2 (11:08→19:38)
[2018-12-03] MEDS: IPRATROPIUM/ALBUTEROL SULFATE 3 ML SOLUTION IH SCH ×3 (11:49→23:21)
[2018-12-03] MEDS: INSULIN LISPRO 100 UNIT/ML 3ML SQ SCH ×5 (11:52→20:11)
--- NOTE | 2018-12-03 12:35 | NUR ---
DR POWELL AWARE OF CONSULT. STATES HE WILL COME TO SEE PATIENT LATER TODAY.
[2018-12-03] MEDS: FLU VACC QS2019-20 36MOS UP/PF 60 MCG/0.5 ML ML IM SCH (12:55)
--- NOTE | 2018-12-03 13:00 | NUR ---
ADMINISTERED FLU VACCINE LOT #[id number] EXP 08/10/2019 EDUCATION ON FLU VACCINE PROVIDED.
--- NOTE | 2018-12-03 15:11 | NUR ---
PATIENT EATING BANANA PUDDING AND MAC AND CHEESE. EDUCATED PATIENT ON POOR GLUCOSE CONTROL, INFECTION PROCESS AND CELLULITIS. PATIENT VERBALIZED UNDERSTANDING BUT CONTINUED EATING HIS "SNACKS" STATING HE WAS HUNGRY. I ASKED PATIENT TO PLEASE DO NOT BRING ANY OUTSIDE FOOD TO THE ROOM. BOTH PATIENT AND NEED TEACHING REENFORCEMENT.
[2018-12-03 16:00] VITALS: BP 114/48
[2018-12-03] MEDS: BUDESONIDE 0.5 MG/2 ML INH IH SCH (18:48)
[2018-12-03] MEDS: ATORVASTATIN CALCIUM 40 MG TABLET PO SCH (19:37)
[2018-12-03 20:00] VITALS: BP 130/73
[2018-12-03] MEDS: INSULIN GLARGINE 100 UNITS/ML 10 ML VIAL SQ SCH (20:10)
[2018-12-03] MEDS: FLUCONAZOLE 200 MG/NS 100 ML 100 ML IV SCH (22:09)
[2018-12-04 00:43] VITALS: BP 138/57
[2018-12-04 04:00] VITALS: BP 135/52
[2018-12-04] MEDS: ZOSYN 3.375GM+NS 50ML 50 ML IV SCH ×3 (05:14→21:24)
[2018-12-04 05:16] LABS: EOSINOPHILS % (AUTO) 5.7 % (0.0-8.0); MEAN CORPUSCULAR HEMOGLOBIN 29.9 pg (27.0-33.0); MEAN CORPUSCULAR HGB CONC 33.5 g/dL (32.0-36.0); MEAN CORPUSCULAR VOLUME 89.1 fL (79-99); MONOCYTES % (AUTO) 8.2 % (3.0-13.0); NEUTROPHILS % (AUTO) 69.1 % (40.0-77.0); PLATELET COUNT (AUTO) 286 K/uL (130-400); RED BLOOD CELL COUNT(AUTO) 3.48 MIL/uL (4.50-6.20); RED CELL DISTRIBUTION WIDTH 15.3 % (11.0-15.5)
[2018-12-04 05:28] LABS: CREATININE 1.5 mg/dL (0.5-1.5); CRP QUANTITATIVE 79.4 mg/L (0.00-9.0); MAGNESIUM 1.8 mg/dL (1.80-2.40); PHOSPHORUS 3.8 mg/dL (2.5-4.9)
[2018-12-04] MEDS: INSULIN LISPRO 100 UNIT/ML 3ML SQ SCH ×7 (05:42→21:54)
[2018-12-04 06:29] LABS: ERYTHROCYTE SEDIMENTATION RATE 129 MM/HR (0-20)
[2018-12-04] MEDS: FLU VACC QS2019-20 36MOS UP/PF 60 MCG/0.5 ML ML IM SCH (06:30)
[2018-12-04] MEDS: BUDESONIDE 0.5 MG/2 ML INH IH SCH ×2 (06:54→18:44)
[2018-12-04] MEDS: IPRATROPIUM/ALBUTEROL SULFATE 3 ML SOLUTION IH SCH ×4 (06:54→23:20)
[2018-12-04 08:00] VITALS: BP 134/58
[2018-12-04] MEDS: CHOLECALCIFEROL PO SCH (09:00)
[2018-12-04] MEDS: PRIMIDONE PO SCH ×2 (09:00→21:00)
--- NOTE | 2018-12-04 09:50 | NUR ---
CM Note: [facility] pending ins auth Spoke to Jenifer Rosales, pt still pending ins auth at this time. EMS arranged for today, primary nures to call [facility] once pt ready to DC. Still pending clearance from cardio and Dr Shaffer. Primary nurse aware. CM to cont to follow up.
[2018-12-04] MEDS: FUROSEMIDE 40 MG TABLET PO SCH ×2 (10:00→21:35)
[2018-12-04] MEDS: MULTIVITAMIN TABLET PO SCH (10:00)
[2018-12-04] MEDS: ASPIRIN 81 MG EC TAB PO SCH (10:00)
[2018-12-04] MEDS: LOSARTAN 100 MG TABLET PO SCH (10:00)
[2018-12-04] MEDS: CARVEDILOL 25 MG TABLET PO SCH ×2 (10:00→21:35)
[2018-12-04] MEDS: AMLODIPINE BESYLATE 5 MG TAB PO SCH ×2 (10:00→21:35)
[2018-12-04] MEDS: LORATADINE 10 MG TABLET PO SCH (10:00)
[2018-12-04] MEDS: SPIRONOLACTONE 25 MG TAB PO SCH (10:01)
[2018-12-04] MEDS: ISOSORBIDE MONO 60 MG TAB.SR PO SCH (10:01)
[2018-12-04] MEDS: VANCOMYCIN 1.25 GM in SODIUM CHLORIDE 0.9% 250 ML IV SCH ×2 (10:05→21:33)
[2018-12-04] MEDS: FAMOTIDINE 20MG TAB 20 MG TAB PO SCH ×2 (10:05→21:35)
[2018-12-04] MEDS: ENOXAPARIN SODIUM 40 MG/0.4 ML SYRINGE SQ SCH (10:07)
[2018-12-04] MEDS: METHYLPREDNISOLONE SOD SUCC 40MG/ML 1ML IVP SCH ×2 (10:08→21:33)
[2018-12-04 12:00] VITALS: BP 141/56
--- NOTE | 2018-12-04 14:49 | NUR ---
RD NOTIFICATION/ FOLLOW UP DIET: 60GMCCD. PT STATED HE IS STILL FEELING HUNGRY AFTER MEALS AND WOULD LIKE A SNACK BEFORE BED. PO INTAKE 100% AND HAS GOOD APPETITE PER PT. SKIN: 1+ PITTING EDEMA, RIGHT LEG CELLULITIS, NOTED. COOKS AT HOME FOR PT, HE CLAIMS TO BE COMPLIANT WITH MEDICATIONS AND DM DIET. RD PROVIDED DM DIET AND NUTRITION EDUCATION. PT ASKED QUESTIONS, RD ANSWERED AND PT VERBALIZED UNDERSTANDING. EDUCATION MATERIALS PROVIDED. RD RECOMMENDS CHANGE DIET ORDER TO 75GMCCD. OFFER DIABETIC BEDTIME SNACK PLEASE. RD PROVIDED DM DIET AND NUTRITION EDUCATION. RD WILL FOLLOW UP NEEDED. MADDISON CHAUDHARY MS, RDN Addendum: 12/04/18 at [address] Amended: Links added.
--- NOTE | 2018-12-04 14:50 | NUR ---
DIET EDUCATION COOKS AT HOME FOR PT, HE CLAIMS TO BE COMPLIANT WITH MEDICATIONS AND DM DIET. [facility] PROVIDED DM DIET AND NUTRITION EDUCATION. PT ASKED QUESTIONS, RD ANSWERED AND PT VERBALIZED UNDERSTANDING. EDUCATION MATERIALS PROVIDED. Addendum: 12/04/18 at [address] Amended: Links added.
[2018-12-04 16:00] VITALS: BP 128/61
--- NOTE | 2018-12-04 16:34 | NUR ---
DR POWLEL PAGED REGARDING FOLLOW UP ON CONSULT FROM YESTERDAY,PENDING ROUNDS ..PENDING CALL BACK
--- NOTE | 2018-12-04 17:32 | NUR ---
CALL FROM DR POWELL ,PER MD WILL COME SEE PATIENT TONIGHT IF UNABLE ,TOMORROW MORNING .GAVE RESULTS OF ARTERIAL DUPLEX . PER TO INFORM ANTON IF PATIENT NEEDS ANGIOGRAM INTERVENTION WILL NEED TO BE DONE BY DR MARTINEZ . CALL PLACED TO DR WALTON AND LEFT MESSAGE ON HIS CELLPHONE .PENDING CALL BACK
[2018-12-04 20:00] VITALS: BP 147/71
[2018-12-04] MEDS: FLUCONAZOLE 200 MG/NS 100 ML 100 ML IV SCH (21:24)
[2018-12-04] MEDS: ATORVASTATIN CALCIUM 40 MG TABLET PO SCH (21:35)
[2018-12-04] MEDS: INSULIN GLARGINE 100 UNITS/ML 10 ML VIAL SQ SCH (21:52)
[2018-12-05 00:28] VITALS: BP 149/84
[2018-12-05 04:55] VITALS: BP 156/68
[2018-12-05] MEDS: ZOSYN 3.375GM+NS 50ML 50 ML IV SCH ×2 (05:26→14:48)
[2018-12-05] MEDS: INSULIN LISPRO 100 UNIT/ML 3ML SQ SCH ×6 (06:22→18:02)
[2018-12-05] MEDS: BUDESONIDE 0.5 MG/2 ML INH IH SCH ×2 (06:50→18:18)
[2018-12-05] MEDS: IPRATROPIUM/ALBUTEROL SULFATE 3 ML SOLUTION IH SCH ×3 (06:50→18:09)
[2018-12-05 08:00] VITALS: BP 155/61
[2018-12-05] MEDS: MULTIVITAMIN TABLET PO SCH (08:23)
[2018-12-05] MEDS: CARVEDILOL 25 MG TABLET PO SCH (08:23)
[2018-12-05] MEDS: AMLODIPINE BESYLATE 5 MG TAB PO SCH (08:23)
[2018-12-05] MEDS: ASPIRIN 81 MG EC TAB PO SCH (08:23)
[2018-12-05] MEDS: LOSARTAN 100 MG TABLET PO SCH (08:23)
[2018-12-05] MEDS: LORATADINE 10 MG TABLET PO SCH (08:23)
[2018-12-05] MEDS: SPIRONOLACTONE 25 MG TAB PO SCH (08:24)
[2018-12-05] MEDS: ISOSORBIDE MONO 60 MG TAB.SR PO SCH (08:24)
[2018-12-05] MEDS: FAMOTIDINE 20MG TAB 20 MG TAB PO SCH (08:24)
[2018-12-05] MEDS: FUROSEMIDE 40 MG TABLET PO SCH (08:25)
[2018-12-05] MEDS: ENOXAPARIN SODIUM 40 MG/0.4 ML SYRINGE SQ SCH (08:25)
[2018-12-05] MEDS: CHOLECALCIFEROL PO SCH (08:31)
[2018-12-05] MEDS: METHYLPREDNISOLONE SOD SUCC 40MG/ML 1ML IVP SCH (08:31)
[2018-12-05] MEDS: PRIMIDONE PO SCH (08:31)
--- NOTE | 2018-12-05 10:26 | NUR ---
[facility] UPDATE: Benedicto Burgess from [facility] this am, she mentions that pt has been accepted and they have secured insurance auth for admission if pt is medically cleared for dc today. Informed primary nurse and charge nurse that [facility] has accepted pt and has insurance auth. However per primary nurse they are still pending for clearance from Dr. Healy and Deena. MOT in chart if pt is cleared for dc.
[2018-12-05] MEDS: VANCOMYCIN 1.25 GM in SODIUM CHLORIDE 0.9% 250 ML IV SCH (10:31)
[2018-12-05 12:00] VITALS: BP 136/62
--- NOTE | 2018-12-05 14:28 | NUR ---
CALLED TO DR WALTON INFORMING HIM DR MARTINEZ IS NOT TURRET LATHE SET UP OPERATOR UNTIL FRIDAY FOR INTERVENTION. PER MD IF NOT TURRET LATHE SET UP OPERATOR ITS OK TO SEND PATIENT TO [facility] PER HIS STANDPOINT AND WILL SET UP TO GET CARDIOLOGY AN OUTPT FOR ANY INTERVENTION.PER MD TO CALL HIM ON MRI RESULTS WHEN READY .PENDING RESULTS
--- NOTE | 2018-12-05 14:49 | NUR ---
CALLED AND SPOKE WITH DR POWELL REGARDING UPDATE ON [facility] NOT ONCALL UNTIL FRIDAY FOR INTERVENTION PER [facility]. ALSO LET HIM KNOW DR ANTON NAILS MENTIONED NOT TO WORRY ON IT THAT THEY CAN SORT IT OUT AFTER OUTPT AND OK TO TRANSFER TO [facility]. DR POWELL STATED PATIENT CAN FOLLOW UP ALSO IN CLINIC TO SET UP ANY INTERVENTION IF NEEDED . DR POWELL ALSO SPOKE WITH PATIENT VIA PHONE . PENDING HOSPITALIST TO ROUND ON PATIENT .
[2018-12-05 16:00] VITALS: BP 129/71
[2018-12-05 19:00] VITALS: BP 152/84
--- NOTE | 2018-12-05 19:00 | NUR ---
BHANDARI REPORT TO [facility] AND SPOKEWITH CARMENZA. INFORMED HER OF FOLLOW UP ON MRI RESULTS AND FOLLOW UP WITH DR POWELL REGARDING POSSIBLE INTERVENTION FOR RESULT OF ABNORMAL ARTERIAL WAVEFORM .PER CARMENZA WILL INFORM AJ TO REQUEST FOR RESULTS .INFORME DR WALTON WELL STILL PENDING RESULTS FROM MRI. FRED PRESSLEY STATED OK TO CONT WITH TRANSFER .CALLED TO EMS AND ALSO SPOKE WITH DISPATCH CARMENZA ,AWARE OF TRANSFERRING PATIENT TO [facility] . INFORMED PATIENT ON UPDATE AND FRED GRACE STATED ALREADY SPOKE WITH HIS WELL .
[2018-12-05] MEDS ORDERED: VANCOMYCIN 1GM+NS 250ML 250 ML IV SCH (21:00)
== END 2018-12-05 20:13 | DRG 872 ==
LOC: EDH 17:42 → OBSVTOIN 20:06 → EDHIP 20:06 → 3AH 11-27 03:19
PROVIDERS: ADMIT Internal Medicine; ATTEND Internal Medicine
PROC: 3E02340 Introduction of Influenza Vaccine into Muscle, Percutaneous Approach (ICD-10-PCS; 2018-11-27)
PROC: 5A09357 Assistance with Respiratory Ventilation, Less than 24 Consecutive Hours, Continuous Positive Airway Pressure (ICD-10-PCS; 2018-11-27)
PROC: 5A09357 Assistance with Respiratory Ventilation, Less than 24 Consecutive Hours, Continuous Positive Airway Pressure (ICD-10-PCS; 2018-11-28)
PROC: 5A09357 Assistance with Respiratory Ventilation, Less than 24 Consecutive Hours, Continuous Positive Airway Pressure (ICD-10-PCS; 2018-11-29)
PROC: 5A09357 Assistance with Respiratory Ventilation, Less than 24 Consecutive Hours, Continuous Positive Airway Pressure (ICD-10-PCS; 2018-12-01)
PROC: 0HBRXZZ Excision of Toe Nail, External Approach (ICD-10-PCS; 2018-12-02)
PROC: 0HBRXZZ Excision of Toe Nail, External Approach (ICD-10-PCS; 2018-12-02)
PROC: 0HBRXZZ Excision of Toe Nail, External Approach (ICD-10-PCS; 2018-12-02)
PROC: 0HBRXZZ Excision of Toe Nail, External Approach (ICD-10-PCS; 2018-12-02)
PROC: 0HBRXZZ Excision of Toe Nail, External Approach (ICD-10-PCS; 2018-12-02)
PROC: 0HBRXZZ Excision of Toe Nail, External Approach (ICD-10-PCS; 2018-12-02)
PROC: 0HBRXZZ Excision of Toe Nail, External Approach (ICD-10-PCS; 2018-12-02)
PROC: 0HBRXZZ Excision of Toe Nail, External Approach (ICD-10-PCS; 2018-12-02)
PROC: 0HBRXZZ Excision of Toe Nail, External Approach (ICD-10-PCS; 2018-12-02)
PROC: 0HBRXZZ Excision of Toe Nail, External Approach (ICD-10-PCS; 2018-12-02)
PROC: 5A09357 Assistance with Respiratory Ventilation, Less than 24 Consecutive Hours, Continuous Positive Airway Pressure (ICD-10-PCS; 2018-12-02)
PROC: 02HV33Z Insertion of Infusion Device into Superior Vena Cava, Percutaneous Approach (ICD-10-PCS; principal; 2018-12-03)
PROC: B548ZZA Ultrasonography of Superior Vena Cava, Guidance (ICD-10-PCS; 2018-12-03)
PROC: 5A09357 Assistance with Respiratory Ventilation, Less than 24 Consecutive Hours, Continuous Positive Airway Pressure (ICD-10-PCS; 2018-12-03)
PROC: 5A09357 Assistance with Respiratory Ventilation, Less than 24 Consecutive Hours, Continuous Positive Airway Pressure (ICD-10-PCS; 2018-12-04)
PROC: 5A09357 Assistance with Respiratory Ventilation, Less than 24 Consecutive Hours, Continuous Positive Airway Pressure (ICD-10-PCS; 2018-12-05)
DX: A41.9 Sepsis, unspecified organism (principal); L03.115 Cellulitis of right lower limb; Z68.42 Body mass index [BMI] 45.0-49.9, adult; J44.1 Chronic obstructive pulmonary disease with (acute) exacerbation; N39.0 Urinary tract infection, site not specified; L02.611 Cutaneous abscess of right foot; E66.01 Morbid (severe) obesity due to excess calories; E11.65 Type 2 diabetes mellitus with hyperglycemia; M19.90 Unspecified osteoarthritis, unspecified site; E11.51 Type 2 diabetes mellitus with diabetic peripheral angiopathy without gangrene; R65.20 Severe sepsis without septic shock; I11.9 Hypertensive heart disease without heart failure; E87.5 Hyperkalemia; B35.9 Dermatophytosis, unspecified; E78.5 Hyperlipidemia, unspecified; I25.10 Atherosclerotic heart disease of native coronary artery without angina pectoris; L60.0 Ingrowing nail; Z96.651 Presence of right artificial knee joint; L97.519 Non-pressure chronic ulcer of other part of right foot with unspecified severity; E11.621 Type 2 diabetes mellitus with foot ulcer; Q63.1 Lobulated, fused and horseshoe kidney; Z83.3 Family history of diabetes mellitus; Z87.891 Personal history of nicotine dependence; Z95.1 Presence of aortocoronary bypass graft; Z98.61 Coronary angioplasty status; Z82.3 Family history of stroke; Z23 Encounter for immunization
CPT/HCPCS: 36415; 71045; 73620; 73700; 73718; 80048; 80053; 80202; 81001; 82550; 82948; 83036; 83605; 83735; 83874; 83880; 84100; 84132; 84145; 84484; 85025; 85027; 85610; 85651; 85730; 86140; 87040; 87088; 87486; 87581; 87633; 87798; 93005; 93926; 93971; 94640; 94664; 97039; C1894; G0008; G0378; J0696; J1450; J1650; J1815; J1940; J2543; J2920; J3370; J7030; J7040

== ENCOUNTER 2022-03-05 07:00 | Day surgery (SDC) | payer OTHER ==
[2022-03-04 15:14] LABS: BASOPHILS % (AUTO) 0.6 % (0.0-5.0); EOSINOPHILS % (AUTO) 3.7 % (0.0-8.0); HEMATOCRIT 45.1 % (42-54); MEAN CORPUSCULAR HEMOGLOBIN 26.8 pg (27.0-33.0); MEAN CORPUSCULAR HGB CONC 30.6 g/dL (32.0-36.0); MEAN CORPUSCULAR VOLUME 87.6 fL (79-99); NEUTROPHILS % (AUTO) 62.4 % (40.0-77.0); PLATELET COUNT (AUTO) 256 K/uL (130-400); RED BLOOD CELL COUNT(AUTO) 5.15 MIL/uL (4.50-6.20); RED CELL DISTRIBUTION WIDTH 16.5 % (11.0-15.5); WHITE BLOOD COUNT (AUTO) 7.8 K/uL (4.8-10.8)
[2022-03-04 15:23] LABS: CREATININE 1.6 mg/dL (0.5-1.5); POTASSIUM 4.5 mmol/L (3.5-5.1)
[2022-03-04 16:01] VITALS: BP 188/88
[~2022-03-05] VITALS: Ht 176.5 cm; Wt 134.7 kg
[2022-03-05] VITALS (14 sets, daily range): BP systolic 132–176; BP diastolic 70–98
[~2022-03-05 07:00] MED LIST changes: +ACET-2743 PO; +ALBU18HF7 IH; -ALBUTEROL IH; +AMIO200T68 PO; -AMLO5TAB9 PO; +APIX2.5T PO; -ASPI-1012 PO; +ASPI-1443 PO; +BACITRACIN 28.4 GM OINT TP ONE; +DICL2100G TP; +EMPA25TA PO; +EPINEPHRINE 1 MG/ML 30ML VIAL IJ ONE; +EZET10TA48 PO; +FLUT16H NASAL; +FURO20TA4 PO; -FURO40TA5 PO; +HYDR-4153 PO; -HYDR-4457 PO; +HYDR170P TP; -INSU100I3 SQ; -INSULIN NPH SQ; -ISOS60TA4 PO; +ISOS60TA77 PO; +LIDOCAINE 1%-EPI 1:100,000 20 ML VIAL IJ ONE; -METF750T46 PO; +NITR0.4T50 SL; +NPH,100V11 SQ; +OMEP20TA20 PO; +PENI500T2 PO; +POLY17PO4 PO; +PRIM50TA23 PO; -PRIM50TA29 PO; +RAMI10CA69 PO; -SPIR25TA6 PO
[2022-03-05] MEDS ORDERED: LIDOCAINE 1%-EPI 1:100,000 20 ML VIAL IJ SCH (07:30)
[2022-03-05] MEDS ORDERED: 0.9%NACL 1000ML 1,000 ML IV ONE (07:43)
[2022-03-05] MEDS ORDERED: FAMOTIDINE 20MG VIAL IV ONE (10:23)
[2022-03-05] MEDS ORDERED: SUGAMMADEX SODIUM 200 MG/2 ML VIAL IV ONE (10:29)
[2022-03-05] MEDS ORDERED: ROCURONIUM 10MG/1ML SYR 10 MG/ML ML ONE (10:34)
[2022-03-05] MEDS ORDERED: FENTANYL CITRATE PF 50 MCG/1 ML 2ML VIAL ONE (10:34)
[2022-03-05] MEDS ORDERED: SUCCINYLCHOLINE 200MG/10ML SYR ONE (10:34)
[2022-03-05] MEDS ORDERED: PROPOFOL 10 MG/ML 20ML VIAL IV ONE (10:34)
[2022-03-05] MEDS ORDERED: MIDAZOLAM HCL 1 MG/ML 2ML VIAL ONE (10:34)
[2022-03-05] MEDS ORDERED: LIDOCAINE PF 100MG/5ML (2%) SYRINGE 5ML ONE (10:34)
[2022-03-05] MEDS ORDERED: SEMA1PEN3 SQ (10:36)
[2022-03-05] MEDS ORDERED: EPINEPHRINE 1 MG/ML 30ML VIAL IJ ONE (11:05)
[2022-03-05] MEDS ORDERED: LIDOCAINE 1%-EPI 1:100,000 20 ML VIAL IJ ONE (11:05)
[2022-03-05] MEDS ORDERED: ONDANSETRON 4MG INJ ONE (11:09)
[2022-03-05] MEDS ORDERED: NOREPINEPHRINE BITARTRATE 1 MG/1 ML ML IV ONE (11:21)
[2022-04-06] MEDS ORDERED: AZIT500T2 PO (10:37)
[2022-04-06] MEDS ORDERED: PRED20TA3 PO (10:37)
[2022-04-06] MEDS ORDERED: ALBU90AE2 IH (10:38)
== END 2022-03-05 14:10 | disposition home or self-care (01) ==
LOC: DAH 07:00
PROVIDERS: ATTEND Otolaryngology Plastic Surgery within the Head & Neck
DX: J32.8 Other chronic sinusitis (principal); Z20.822 Contact with and (suspected) exposure to COVID-19; J34.2 Deviated nasal septum; J34.3 Hypertrophy of nasal turbinates; J32.2 Chronic ethmoidal sinusitis; R51.9 Headache, unspecified; I11.0 Hypertensive heart disease with heart failure; I50.9 Heart failure, unspecified; K21.9 Gastro-esophageal reflux disease without esophagitis; E11.9 Type 2 diabetes mellitus without complications; I48.91 Unspecified atrial fibrillation; Z95.1 Presence of aortocoronary bypass graft; Z98.890 Other specified postprocedural states; Z79.82 Long term (current) use of aspirin; Z79.01 Long term (current) use of anticoagulants; Z79.899 Other long term (current) drug therapy
CPT/HCPCS: 80048; 85025; 87426; 36415; 31254; 31256; 30140; 30520; 82948; 88311 ×3; 88304; 88305; 93005; A6260; A4663; J7030 ×2; A4649 ×2; J3490 ×3; J0330; J0171 ×2; J2001; J2250; J2704; J2405; A4215 ×2; A4223; A4222; A4221; J3010

== ENCOUNTER 2023-01-06 14:00 | Emergency (ER) | payer OTHER ==
[~2023-01-06] VITALS: Ht 175.3 cm; Wt 132.0 kg
[~2023-01-06 14:00] MED LIST changes: +ACET-2247 PO; -ACET-2743 PO; +ALBU90AE2 IH; +AMIO100T4 PO; -AMIO200T68 PO; -APIX2.5T PO; +APIX5TAB PO; +ASPI-1005 PO; -ASPI-1443 PO; +ATOR40TA69 PO; +AZEL137S11 NS; -BACITRACIN 28.4 GM OINT TP ONE; +BUDE0.5A3 IH; +CLOP-31 PO; -DICL2100G TP; -EPINEPHRINE 1 MG/ML 30ML VIAL IJ ONE; +FERR-72 PO; -FLUT16H NASAL; +FLUT1BLS12 IH; -FURO20TA4 PO; +HYDR20VI16 IV; +INSU100V45 SQ; -ISOS60TA77 PO; +Isosorbide Mono 30MG Sr Tab PO; +LEVO250T75 PO; -LIDOCAINE 1%-EPI 1:100,000 20 ML VIAL IJ ONE; +LISI40TA9 PO; +MONT-46 PO; -OMEP20TA20 PO; +ONDA22I IV; +PANT40TA54 PO; -PENI500T2 PO; -RAMI10CA69 PO; +SEMA1PEN3 SQ; +TAMS-1 PO; +[UNRECOGNIZED DRUG - CODE] PO
[2023-01-06 20:08] LABS: BASOPHILS # (AUTO) 0.05 K/uL (0.00-0.20); BASOPHILS % (AUTO) 0.7 % (0.0-5.0); EOSINOPHILS # (AUTO) 0.23 K/uL (0.00-0.70); EOSINOPHILS % (AUTO) 3.1 % (0.0-8.0); HEMATOCRIT 43.1 % (42-54); IMMATURE GRANULOCYTE ABSOLUTE 0.08 K/uL (0-1); LYMPHOCYTES # (AUTO) 1.5 K/uL (1.0-4.8); LYMPHOCYTES % (AUTO) 19.6 % (21.0-51.0); MEAN CORPUSCULAR HEMOGLOBIN 27.4 pg (27.0-33.0); MEAN CORPUSCULAR HGB CONC 30.6 g/dL (32.0-36.0); MEAN CORPUSCULAR VOLUME 89.4 fL (79-99); MONOCYTES # (AUTO) 0.8 K/uL (0.1-1.0); MONOCYTES % (AUTO) 10.7 % (3.0-13.0); NEUTROPHILS # (AUTO) 4.9 K/uL (1.8-7.7); NEUTROPHILS % (AUTO) 64.8 % (40.0-77.0); PLATELET COUNT (AUTO) 299 K/uL (130-400); RED BLOOD CELL COUNT(AUTO) 4.82 MIL/uL (4.50-6.20); RED CELL DISTRIBUTION WIDTH 17.1 % (11.0-15.5); WHITE BLOOD COUNT (AUTO) 7.5 K/uL (4.8-10.8)
[2023-01-06 20:16] LABS: CREATININE 1.7 mg/dL (0.5-1.5); POTASSIUM 4.3 mmol/L (3.5-5.1)
[2023-01-06 20:21] LABS: ALBUMIN 2.6 g/dL (3.5-5.0); BILIRUBIN,TOTAL 0.3 mg/dL (0.2-1.0); TOTAL PROTEIN, SERUM 6.9 g/dL (6.0-8.3)
[2023-01-06 21:05] VITALS: BP 176/82; PULSE 75; RESP 16; O2SAT 97
== END 2023-01-06 21:30 | disposition home or self-care (01) ==
LOC: EDH 14:00
DX: L53.9 Erythematous condition, unspecified (principal); I48.91 Unspecified atrial fibrillation; E11.9 Type 2 diabetes mellitus without complications; E78.00 Pure hypercholesterolemia, unspecified; Z79.01 Long term (current) use of anticoagulants; Z79.02 Long term (current) use of antithrombotics/antiplatelets; Z79.4 Long term (current) use of insulin; Z79.51 Long term (current) use of inhaled steroids; Z79.82 Long term (current) use of aspirin; Z79.899 Other long term (current) drug therapy; Z95.1 Presence of aortocoronary bypass graft; Z95.5 Presence of coronary angioplasty implant and graft
CPT/HCPCS: 36415; 80053; 83605; 85025; 87040; 93970

== ENCOUNTER 2023-09-09 19:39 | Emergency (ER) | payer OTHER ==
[~2023-09-09] VITALS: Ht 175.3 cm; Wt 131.5 kg
[~2023-09-09 19:39] MED LIST changes: -ACET-2247 PO; -ALBU18HF7 IH; -ALBU90AE2 IH; -AMIO100T4 PO; +APIX2.5T PO; -APIX5TAB PO; -ASPI-1005 PO; -ATOR40TA69 PO; -AZEL137S11 NS; -BUDE0.5A3 IH; -CARV25TA PO; -CLOP-31 PO; -EMPA25TA PO; -EZET10TA48 PO; -FERR-72 PO; -FLUT1BLS12 IH; +FURO40TA5 PO; -HYDR-4153 PO; -HYDR170P TP; -HYDR20VI16 IV; +HYDR25 PO; +INSLAN SQ; -INSU100V45 SQ; -Isosorbide Mono 30MG Sr Tab PO; -LEVO250T75 PO; -LISI40TA9 PO; -LORA10TA7 PO; -MONT-46 PO; -NPH,100V11 SQ; -ONDA22I IV; -PANT40TA54 PO; +PENI500T2 PO; -POLY17PO4 PO; -PRIM50TA23 PO; -ROSU40TA21 PO; +ROSU40TA70 PO; +SACU1TAB7 PO; -TAMS-1 PO; -[UNRECOGNIZED DRUG - CODE] PO
[2023-09-09 20:28] LABS: BASOPHILS # (AUTO) 0.04 K/uL (0.00-0.20); BASOPHILS % (AUTO) 0.3 % (0.0-5.0); EOSINOPHILS # (AUTO) 0.06 K/uL (0.00-0.70); EOSINOPHILS % (AUTO) 0.5 % (0.0-8.0); IMMATURE GRANULOCYTE ABSOLUTE 0.06 K/uL (0-1); LYMPHOCYTES % (AUTO) 7.8 % (21.0-51.0); MEAN CORPUSCULAR HEMOGLOBIN 28.8 pg (27.0-33.0); MEAN CORPUSCULAR HGB CONC 31.9 g/dL (32.0-36.0); MEAN CORPUSCULAR VOLUME 90.1 fL (79-99); MONOCYTES # (AUTO) 1.3 K/uL (0.1-1.0); MONOCYTES % (AUTO) 10.2 % (3.0-13.0); NEUTROPHILS # (AUTO) 10.1 K/uL (1.8-7.7); NEUTROPHILS % (AUTO) 80.7 % (40.0-77.0); PLATELET COUNT (AUTO) 196 K/uL (130-400); RED BLOOD CELL COUNT(AUTO) 4.66 MIL/uL (4.50-6.20); RED CELL DISTRIBUTION WIDTH 15.9 % (11.0-15.5); WHITE BLOOD COUNT (AUTO) 12.5 K/uL (4.8-10.8)
[2023-09-09 20:44] LABS: INR 1.4 (0.85-1.15); PROTHROMBIN TIME 14.7 SEC (9.6-11.6)
[2023-09-09 20:47] LABS: CREATININE 1.5 mg/dL (0.5-1.3); POTASSIUM 4.4 mmol/L (3.5-5.1)
[2023-09-09 21:00] LABS: B-TYPE NATRIURETIC PEPTIDE 45 pg/mL (0-100)
[2023-09-09 21:03] LABS: APPEARANCE,URINE CLOUDY (CLEAR); BILIRUBIN,URINE NEGATIVE (NEGATIVE); COLOR,URINE LIGHT-YELLOW (YELLOW); GLUCOSE, URINE (UA) >=1000 mg/dL (NEGATIVE); KETONES,URINE NEGATIVE (NEGATIVE); LEUKOCYTE ESTERASE ,URINE 500 Leu/uL (NEGATIVE); NITRATE,URINE NEGATIVE (NEGATIVE); OCCULT BLOOD,URINE SMALL (NEGATIVE); PROTEIN,URINE 200 mg/dL (NEGATIVE); UROBILINOGEN,URINE 0.2 mg/dL (0.2-1.0)
[2023-09-09 21:22] LABS: ADD UA MICROSCOPIC YES
[2023-09-09 21:47] LABS: MUCUS,URINE RARE LPF (None Seen); WBC CLUMP FEW /HPF (0-1); WBC,URINE TNTC /HPF (0-1)
[2023-09-09 21:56] LABS: SARS-CoV-2, RNA, NAAT NEGATIVE SARS CoV-2 (NEGATIVE)
[2023-09-09 22:01] LABS: INFLUENZA TYPE A Negative For Type A (NEGATIVE); INFLUENZA TYPE B Negative For Type B (NEGATIVE)
[2023-09-09] MEDS: CEFTRIAXONE 1G VIAL IVPB STA (23:18)
[2023-09-09] MEDS ORDERED: CEPH500B PO (23:39)
[2023-09-10] VITALS: BP 137/85; PULSE 82; RESP 20; O2SAT 97
== END 2023-09-10 00:08 | disposition home or self-care (01) ==
LOC: EDH 19:39
DX: N39.0 Urinary tract infection, site not specified (principal); I11.0 Hypertensive heart disease with heart failure; I50.9 Heart failure, unspecified; E11.9 Type 2 diabetes mellitus without complications; E78.00 Pure hypercholesterolemia, unspecified; I48.91 Unspecified atrial fibrillation; Z20.822 Contact with and (suspected) exposure to COVID-19; Z79.4 Long term (current) use of insulin; Z79.899 Other long term (current) drug therapy; Z95.1 Presence of aortocoronary bypass graft; Z95.5 Presence of coronary angioplasty implant and graft; Z98.890 Other specified postprocedural states
CPT/HCPCS: 99285; 96374; 71045; 87635; 82550; 84484 ×2; 80048; 83880; 85025; 85610; 87086 ×2; 87186; 87804 ×2; 81001; 36415; 93005; J0696

== ENCOUNTER 2023-10-15 06:00 | Day surgery (SDC) | payer OTHER ==
[2023-10-15] VITALS (10 sets, daily range): BP systolic 98–127; BP diastolic 53–74; PULSE 70–87; RESP 15–17; TEMP 96.6–97.6
[~2023-10-15] VITALS: Ht 175.3 cm; Wt 79.4 kg
[~2023-10-15 06:00] MED LIST changes: +AEC81 PO; +AMIO200T68 PO; +CARV25TA PO; +CLOP75TA32 PO; +EZET10TA48 PO; +FERR-72 PO; +FINE10TA PO; -HYDR25 PO; +HYDR25TA67 PO; +ISOS30TA92 PO; -PENI500T2 PO; +PRIM50TA23 PO; -ROSU40TA70 PO; +ROSU40TA88 PO; +TAMS-1 PO; +TRAZ-185 PO
[2023-10-15] MEDS: 0.9%NACL 1000ML 1,000 ML IV ONE (07:01)
[2023-10-15] MEDS ORDERED: proPOFol 10 MG/ML 20ML VIAL IV ONE (08:00)
== END 2023-10-15 09:30 | disposition home or self-care (01) ==
LOC: DAH 06:00 → ENDO 06:00
PROVIDERS: ATTEND Internal Medicine Gastroenterology
DX: Z12.11 Encounter for screening for malignant neoplasm of colon (principal); D12.5 Benign neoplasm of sigmoid colon; D12.8 Benign neoplasm of rectum; K29.50 Unspecified chronic gastritis without bleeding; K21.00 Gastro-esophageal reflux disease with esophagitis, without bleeding; K22.89 Other specified disease of esophagus; K57.30 Diverticulosis of large intestine without perforation or abscess without bleeding; I25.10 Atherosclerotic heart disease of native coronary artery without angina pectoris; E78.2 Mixed hyperlipidemia; I10 Essential (primary) hypertension; E78.5 Hyperlipidemia, unspecified; I25.2 Old myocardial infarction; E11.9 Type 2 diabetes mellitus without complications; Z96.653 Presence of artificial knee joint, bilateral; Z95.5 Presence of coronary angioplasty implant and graft; Z79.4 Long term (current) use of insulin; Z79.899 Other long term (current) drug therapy
CPT/HCPCS: 82948 ×2; 43239; 45380; J7030 ×2; J2704; A4620; A4215; A4223; A7002; A4222; A4221; A4663; A4606; J3490

== ENCOUNTER 2023-12-13 17:03 | Emergency (ER) | payer OTHER, MEDICARE ==
[~2023-12-13] VITALS: Ht 175.3 cm; Wt 127.0 kg
[2023-12-13] MEDS: acetaMINOPHEN 325 MG TAB PO ONE (18:43)
[2023-12-13 18:55] VITALS: BP 122/68; PULSE 72; RESP 18; TEMP 97.5; O2SAT 94
== END 2023-12-13 18:59 | disposition home or self-care (01) ==
LOC: EDH 17:03
DX: S90.112A Contusion of left great toe without damage to nail, initial encounter (principal); I11.0 Hypertensive heart disease with heart failure; I50.9 Heart failure, unspecified; I25.10 Atherosclerotic heart disease of native coronary artery without angina pectoris; E11.9 Type 2 diabetes mellitus without complications; J44.9 Chronic obstructive pulmonary disease, unspecified; Z79.01 Long term (current) use of anticoagulants; Z79.02 Long term (current) use of antithrombotics/antiplatelets; Z79.82 Long term (current) use of aspirin; Z79.85 Long-term (current) use of injectable non-insulin antidiabetic drugs; Z79.899 Other long term (current) drug therapy; Z95.5 Presence of coronary angioplasty implant and graft; Z98.890 Other specified postprocedural states; X58.XXXA Exposure to other specified factors, initial encounter; Y93.89 Activity, other specified; Y92.89 Other specified places as the place of occurrence of the external cause; Y99.8 Other external cause status
CPT/HCPCS: 73660

== ENCOUNTER 2024-02-22 12:26 | Emergency (ER) | payer OTHER, MEDICARE ==
[~2024-02-22] VITALS: Ht 175.3 cm; Wt 129.7 kg
[~2024-02-22 12:26] MED LIST changes: +CARV12.580 PO; -CARV25TA PO; +EMPA25TA PO; +MELA5TAB50 PO; -NITR0.4T50 SL; +PANT40TA54 PO; +PENI250T4 PO; -SEMA1PEN3 SQ
--- NOTE | 2024-02-22 12:33 | ERN ---
ED Note History of Present Illness Stated Complaint: ABDOMINAL PAIN Chief Complaint: Abdominal Pain Time Seen by MD: 12:28 Dictation: PATIENT IS A 73-YEAR-OLD MALE COMING IN [facility] WITH COMPLAINTS OF EPIGASTRIC AND LEFT UPPER QUADRANT PAIN TENDERNESS, ALSO DESCRIBED PRESSURE4 HOURS PRIOR TO ARRIVAL. NO NAUSEA VOMITING NO CHEST PAIN NO BACK PAIN. NO ARM PAIN NO JAW PAIN STATES HE DOES HAVE A HISTORY OF HYPERTENSION DIABETES AND HAS A HAD A CABG IN THE PAST. CURRENTLY TENDER TO LEFT UPPER QUADRANT WITH PALPATION Allergies: Coded Allergies: No Known Drug Allergies (Unverified Allergy, Unknown, 06/13/17) Home Meds Active Scripts Furosemide (Furosemide) 40 Mg Tablet, 40 MG PO as needed for 10 Days, #20 TAB 0 Refills Prov:NIGEL LAY MD 12/19/23 Carvedilol (Coreg) 12.5 Mg Tablet, 12.5 MG PO BID, #30 TAB Prov:NIGEL LAY MD 12/19/23 Reported Medications Melatonin (Melatonin) 5 Mg Tab.chew, 1 TAB PO HS for sleep for 30 Days, #30 TAB 0 Refills 12/18/23 Penicillin V Potassium (Penicillin V Potassium) 250 Mg Tablet, 1 TAB PO BID for 10 Days, #30 TAB 0 Refills 12/18/23 Empagliflozin (Jardiance) 25 Mg Tablet, 1 TAB PO DAILY for 30 Days, #30 TAB 0 Refills 12/18/23 Pantoprazole Sodium (Pantoprazole Sodium) 40 Mg Tablet.dr, 1 TAB PO DAILY for 30 Days, #30 TAB 0 Refills 12/18/23 Insulin Glargine,Hum.rec.anlog (Lantus) 100 Unit/Ml Inj, 100 UNITS SQ AM, ML 10/14/23 Clopidogrel Bisulfate (Clopidogrel) 75 Mg Tablet, 75 MG PO DAILY, TAB 09/16/23 Ezetimibe (Ezetimibe) 10 Mg Tablet, 10 MG PO DAILY, TAB 09/16/23 Finerenone (Kerendia) 10 Mg Tablet, 10 MG PO DAILY, TAB 09/16/23 Isosorbide Mononitrate (Isosorbide Mononitrate ER) 30 Mg Tab.er.24h, 90 MG PO DAILY, TAB 09/16/23 Ferrous Sulfate (Ferrous Sulfate) 325 Mg (65 Mg Iron) Tablet, 325 MG PO DAILY, TAB 09/16/23 Aspirin (ASPIRIN 81 MG ECTAB) 81 Mg Ectab, 81 MG PO DAILY, TAB.EC 09/16/23 Trazodone HCl (Trazodone HCl) 50 Mg Tablet, 25 MG PO HS, TAB 09/16/23 Amiodarone HCl (Amiodarone HCl) 200 Mg Tablet, 100 MG PO DAILY, TAB 09/16/23 Primidone (Mysoline) 50 Mg Tablet, 25 MG PO HS, TAB 09/16/23 Hydralazine HCl (Hydralazine HCl) 25 Mg Tablet, 25 MG PO BID, TAB 09/16/23 Tamsulosin HCl (Flomax) 0.4 Mg Cap.er.24h, 0.4 MG PO DAILY, CAPSULE.DR 09/16/23 Rosuvastatin Calcium (Rosuvastatin Calcium) 40 Mg Tablet, 40 MG PO AM, TAB 05/21/23 Apixaban (Eliquis) 2.5 Mg Tablet, 2.5 MG PO BID, TAB 05/21/23 Sacubitril/Valsartan (Entresto 49 mg-51 mg Tablet) 49 Mg-51 Mg Tablet, 1 EACH PO BID, TAB 05/21/23 Past Medical History Past Medical History: CHF, Diabetes-Type II, High Cholesterol, Hypertension Additional Past Medical Hx: PROSTATE, BORN WITH " HORSESHOE" KIDNEY-RIGHT Surgical History: CABG, Other Surgical History Other: CARDIAC ABLASION Family History: CAD, DM, HTN Social History: Negative, Lives with family RN Note Reviewed/Agreed w/PFSH: Yes Review of System Dictation CONSTITUTIONAL: NEGATIVE EXCEPT FOR HPI HEAD/FACE: NEGATIVE EXCEPT FOR HPI EENT: NEGATIVE EXCEPT FOR HPI RESPIRATORY: NEGATIVE EXCEPT FOR HPI GASTROINTESTINAL/ABDOMINAL: NEGATIVE EXCEPT FOR HPI EPIGASTRIC AND LEFT UPPER QUADRANT PAIN TENDERNESS GENITOURINARY: NEGATIVE EXCEPT FOR HPI MUSCULOSKELETAL: NEGATIVE EXCEPT FOR HPI INTEGUMENTARY: NEGATIVE EXCEPT FOR HPI NEUROLOGICAL/PSYCH: NEGATIVE EXCEPT FOR HPI HEMATOLOGIC/LYMPHATIC: NEGATIVE EXCEPT FOR HPI ALL SYSTEMS NEGATIVE, EXCEPT NOTED ABOVE. 13 POINT REVIEW OF SYSTEMS ASSESSED AND ALL NEGATIVE EXCEPT FOR ABOVE. Initial Vital Sign VS Vital Signs Date Time Temp Pulse Resp B/P (MAP) Pulse Ox O2 Delivery O2 Flow Rate FiO2 02/22/24 12:27 98.2 80 20 167/74 99 Room Air 02/22/24 13:36 0 21 Physical Exam Dictation VITAL SIGNS REVIEWED GENERAL APPEARANCE: ALERT, ORIENTED X 3, MILD ACUTE DISTRESS, WELL DEVELOPED, NOURISHED. OBESE HEAD AND FACE: NON-TRAUMATIC. EYES: PERRL, PINK CONJUNCTIVAS, EYELID NO TRAUMA, ANTERIOR CHAMBER WITH ARCUS SENILIS. EARS: PINNAS INTACT AND NO SIGNS OF TRAUMA OR ERYTHEMA EAR CANALS CLEAR AND NO DISCHARGE TM NO ERYTHEMA NOSE: NO DISCHARGE, NO BLEEDING. OROPHARYNX: MOUTH NORMAL, TONGUE PINK, PHARYNX CLEAR,NO ERYTHEMA, TONSILS NO EXUDATES, NO ABSCESSES NOTED, MUCOUS MEMBRANE MOIST NECK: SUPPLE, NON-TENDER, NO THYROMEGALY, NO MASSES, NO JVD, NO BRUITS BREAST:DEFERRED CHEST:NO TENDERNESS, NO CREPITUS, NO PARADOXICAL MOVEMENT, NO RETRACTIONS LUNGS:CLEAR, WELL-VENTILATED, SYMMETRIC, NO RALES, NO WHEEZING, NO RHONCHI, NO STRIDOR, GOOD BREATH SOUNDS BILATERALLY HEART: REGULAR RATE, REGULAR RHYTHM, NO MURMUR, NO GALLOPS VASCULAR: NO PERIPHERAL EDEMA, ABDOMEN: SOFT, POSITIVE BOWEL SOUNDS, NONDISTENDED, NO GUARDING, MILD EPIGASTRIC AND LEFT UPPER QUADRANT TENDERNESS WITH PALPATION. NEGATIVE MEADE'S, NEGATIVE MCBURNEY'S POINT RECTAL: DEFERRED GENITAL: DEFERRED NEUROLOGICAL: NORMAL SPEECH, MOTOR FUNCTION INTACT, SENSORY FUNCTION INTACT MUSCULOSKELETAL: NECK NONTENDER, FULL RANGE OF MOTION, BACK NONTENDER, FULL RANGE OF MOTION, EXTREMITIES: NONTENDER, FULL RANGE OF MOTION SKIN: COLOR PINK, DRY, NO TURGOR, NO RASH, NO LACERATIONS, NO ABRASIONS, NO CONTUSIONS. LYMPHATIC: DEFERRED Results (Laboratory/Radiology) Laboratory/Radiology Laboratory Tests Test 02/22/24 13:05 02/22/24 13:14 White Blood Count 8.0 K/uL (4.8-10.8) Red Blood Count 4.35 MIL/uL (4.50-6.20) L Hemoglobin 13.1 g/dL (14.0-18.0) L Hematocrit 41.9 % (42-54) L Mean Corpuscular Volume 96.3 fL (79-99) Mean Corpuscular Hemoglobin 30.1 pg (27.0-33.0) Mean Corpuscular Hemoglobin Concent 31.3 g/dL (32.0-36.0) L Red Cell Distribution Width 13.6 % (11.0-15.5) Platelet Count 221 K/uL (130-400) Mean Platelet Volume 10.5 fL (7.5-10.5) Immature Granulocyte % (Auto) 0.8 % (0-1) Neutrophils (%) (Auto) 63.9 % (40.0-77.0) Lymphocytes (%) (Auto) 20.4 % (21.0-51.0) L Monocytes (%) (Auto) 10.7 % (3.0-13.0) Eosinophils (%) (Auto) 3.3 % (0.0-8.0) Basophils (%) (Auto) 0.9 % (0.0-5.0) Neutrophils # (Auto) 5.1 K/uL (1.8-7.7) Lymphocytes # (Auto) 1.6 K/uL (1.0-4.8) Monocytes # (Auto) 0.9 K/uL (0.1-1.0) Eosinophils # (Auto) 0.26 K/uL (0.00-0.70) Basophils # (Auto) 0.07 K/uL (0.00-0.20) Absolute Immature Granulocyte (auto 0.06 K/uL (0-1) Nucleated Red Blood Cells 0.0 % (0.0-0.19) Sodium Level 144 mmol/L (136-145) Potassium Level 4.3 mmol/L (3.5-5.1) Chloride Level 107 mmol/L (101-111) Carbon Dioxide Level 31 mmol/L (21-32) Blood Urea Nitrogen 34 mg/dL (7-18) H Creatinine 1.7 mg/dL (0.5-1.3) H Glomerular Filtration Rate Calc 43 mL/min (>90) Random Glucose 188 mg/dL (70-105) H Total Calcium 8.9 mg/dL (8.5-10.1) Troponin I High Sensitivity 15 ng/L (4-75) Lipase 88 U/L (16-77) H Urine Color LIGHT-YELLOW (YELLOW) Urine Appearance CLEAR (CLEAR) Urine pH 7.0 (5.0-8.0) Urine Specific Ono 1.016 (1.001-1.031) Urine Protein 200 mg/dL (NEGATIVE) H Urine Glucose (UA) >=1000 mg/dL (NEGATIVE) H Urine Ketones NEGATIVE mg/dL (NEGATIVE) Urine Occult Blood NEGATIVE (NEGATIVE) Urine Nitrate NEGATIVE (NEGATIVE) Urine Bilirubin NEGATIVE mg/dL (NEGATIVE) Urine Urobilinogen 0.2 mg/dL (0.2-1.0) Urine Leukocyte Esterase NEGATIVE Ebony/uL Urine RBC 0-1 /HPF (0-1) Urine WBC 0-1 /HPF (0-1) Urine Squamous Epithelial Cells RARE /HPF (0-2) Urine Bacteria None /HPF (None Seen) CT ABDOMEN/PELVIS W/O CONTRAST INDICATION: EPIGASTRIC AND LEFT UPPER QUADRANT PAIN, ELEVATED LIPASE TECHNIQUE: CT ABDOMEN/PELVIS W/O CONTRAST. Oral contrast was not given. Coronal and sagittal reformats were performed. CT was performed with one or more of the following dose reduction techniques: Automated exposure control, adjustment of the mA and/or kV according to the patient's size, or use of the iterative reconstruction technique. Comparison: 12/18/2023 FINDINGS: The noncontrast nature this study limits evaluation of abdominal viscera. No pulmonary consolidation or pleural effusion is seen. There is hepatic steatosis. Distended gallbladder with gallstones. Consider correlation with ultrasound in the left kidney is not visualized. 3.4 cm hypodense focus in the right kidney, incompletely characterized. Consider correlation with ultrasound.. Small calcified granuloma seen in the spleen. Pancreas, and adrenal glands are within normal limits. No hydronephrosis. The urinary bladder is partially collapsed. Reproductive organs are grossly within normal limits for patient's age. No bowel obstruction is seen. Diverticulosis coli without CT evidence of acute diverticulitis. There is a fat-containing umbilical hernia with the hernia sac measuring 5.2 cm. Appendix is normal in caliber. Atherosclerotic changes of the aorta with calcified plaques. Degenerative changes of the spine are seen. IMPRESSION: 1. There is hepatic steatosis. Distended gallbladder with gallstones. Consider correlation with ultrasound in the left kidney is not visualized. 2. 3.4 cm hypodense focus in the right kidney, incompletely characterized. Consider correlation with ultrasound.. Additional findings as described above. RIBS UNI RT W PA CHEST 3+ VWS REASON: RIGHT LATERAL SUPERIOR CHEST WALL ECCHYMOSIS TENDERNESS STATUS POST FALL . COMPARISON: None TECHNIQUE: Frontal projection of the chest was obtained. 4 images of right ribs were obtained. FINDINGS: No acute pulmonary infiltrates is seen. Poststernotomy changes are seen. Degenerative changes are seen. No acute displaced fracture is seen of right ribs. The heart is not enlarged. IMPRESSION: Findings as described above. Labs Reviewed?: Yes EKG Comment: EKG SINUS RHYTHM/HEART RATE 78/AXIS NORMAL/NONSPECIFIC CHANGES LEADS TWO AND THREE. ED Course ED Course Orders Procedure Category Date Status Time Cbc With Differential LAB 02/22/24 Complete 12:30 Troponin I High LAB 02/22/24 Complete Sensitivity 12:30 Urinalysis Profile LAB 02/22/24 Complete 12:30 12 Lead Ekg Tracing- EKG 02/22/24 Complete Technical 12:30 0.9%Nacl 1000ml (Ns PHA 02/22/24 Complete 1000ml) 12:30 Morphine 2mg Syg PHA 02/22/24 Complete (Morphine 2mg Syg) 12:30 Ondansetron 4mg Inj PHA 02/22/24 Complete (Zofran 4mg Inj) 12:30 Lipase LAB 02/22/24 Complete 12:30 Basic Metabolic Panel LAB 02/22/24 Complete 12:30 Ct Abdomen/Pelvis W/O CT 02/22/24 Resulted Contrast 14:18 Lidocaine Hcl 2% PHA 02/22/24 Complete Viscous (Lidocaine Hcl 15:00 Mag/Alum/Simeth 30ml PHA 02/22/24 Complete (Maalox Plus 30ml) 15:00 Pantoprazole 40mg Inj PHA 02/22/24 Complete (Protonix 40mg Inj 15:00 Dicyclomine Hcl PHA 02/22/24 Complete (Bentyl 10mg/5ml 15:00 Ribs Uni Rt W Pa RAD 02/22/24 Resulted Chest 3+ Vws 16:04 Current Medications Medications (Trade) Dose Ordered Sig/El Route PRN Reason Start Time Stop Time Status Last Admin Dose Admin Al Hydroxide/Mg Hydroxide (MAALox PLUS 30ML) 30 ml ONCE ONCE PO 02/22/24 15:00 02/22/24 15:01 DC 02/22/24 15:18 Dicyclomine HCl (Bentyl 10mg/5ml Syrup) 10 mg ONCE ONCE PO 02/22/24 15:00 02/22/24 15:01 DC 02/22/24 15:18 Lidocaine HCl (Lidocaine HCl 2% Viscous) 10 ml ONCE ONCE PO 02/22/24 15:00 02/22/24 15:01 DC 02/22/24 15:18 Morphine Sulfate (morPHINE 2MG SYG) 2 mg ONCE ONCE IVP 02/22/24 12:30 02/22/24 12:32 DC 02/22/24 13:43 Ondansetron HCl (zoFRAN 4MG INJ) 4 mg ONCE ONCE IVP 02/22/24 12:30 02/22/24 12:32 DC 02/22/24 13:43 Pantoprazole Sodium (PROTonix 40MG INJ) 40 mg ONCE ONCE IVP 02/22/24 15:00 02/22/24 15:01 DC 02/22/24 15:18 Sodium Chloride 1,000 ml @ 0 mls/hr ONCE ONCE IV 02/22/24 12:30 02/22/24 12:32 DC 02/22/24 13:43 Vital Signs Date Time Temp Pulse Resp B/P (MAP) Pulse Ox O2 Delivery O2 Flow Rate FiO2 02/22/24 15:19 98.1 75 20 180/79 97 Room Air* 0 21 02/22/24 13:36 98.1 69 18 170/81 95 Room Air* 0 21 02/22/24 12:27 98.2 80 20 167/74 99 Room Air SEVENTEEN 30, PATIENT STATES HE HAS PAIN IS MARKEDLY REDUCED AFTER TREATMENT. 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 NO FRACTURES ON THE RIBS AFTER HIS FALL SEVERAL DAYS AGO. Medical Decision Making MDM MDM: DIFFERENTIAL DIAGNOSIS: EPIGASTRIC STATUS/GASTRITIS/CHOLELITHIASIS/DIVERTICULITIS/ELECTROLYTE IMBALANCE/DEHYDRATION/ACS/AMI RATIONALE: TESTS CONSIDERED AND ORDERED SECONDARY TO SHARED DECISION MAKING INCLUDE: EKG/LABS/RADIOLOGY PREVIOUS OUTSIDE RECORDS REVIEWED: OLD ER VISITS. RISK OF COMPLICATION AND/OR MORBIDITY OR MORTALITY OF PATIENT MANAGEMENT: NONE NONE MEDICATIONS-PER MEDICATION RECONCILIATION NONE NEED FOR HOSPITALIZATION: PATIENT DOES NOT MEET CRITERIA FOR HOSPITALIZATION. NO NEED FOR EMERGENCY MAJOR/MINOR SURGERY: NO THERE ARE NO SOCIAL CONCERNS WITH THIS PATIENT. PRESCRIPTION DRUG MANAGEMENT OMEPRAZOLE/CARAFATE PRESCRIPTIONS WILL INCLUDE SYMPTOMATIC CARE PATIENT'S PRIOR EXTERNAL MEDICAL RECORDS FROM OTHER ER VISITS WERE REVIEWED BY ME INDICATED. PRIOR TESTING AND RESULTS FROM PREVIOUS VISITS WERE REVIEWED. PRIOR TESTS WERE TAKEN INTO ACCOUNT WITH MEDICAL DECISION MAKING AND RESOURCE UTILIZATION, INDEPENDENT HISTORIAN/HISTORIANS WERE USED TO OBTAIN COMPLETE MEDICAL HISTORY. I INDEPENDENTLY INTERPRETED THE TEST THAT WERE PERFORMED, RESULTS WERE REVIEWED BY ME AND CONSIDERED FINDINGS ON RADIOLOGY IF ORDERED. MEDICAL MANAGEMENT AND EXAMINATION INTERPRETATION DISCUSSIONS WERE HAD BY ME WITH OTHER QUALIFIED HEALTHCARE PROFESSIONALS INDICATED FOR THE PATIENT'S CARE. DX & DISP Disposition: Discharge Departure Impression: Primary Impression: Acute gastritis Additional Impressions: Cholelithiasis, Chronic kidney disease, Uncontrolled diabetes mellitus, Elevated lipase, Contusion of right chest wall, Fall Condition: Stable Scripts Sucralfate (Carafate) 1 Gram Tablet 1 GM PO ACHS for 10 Days, #40 TAB Prov: NALDO PEREIRA NP 02/22/24 Omeprazole (Omeprazole) 40 Mg Capsule.dr 1 CAP PO DAILY for 30 Days, #30 CAP 0 Refills Prov: NALDO PEREIAR QUALITY AUDITOR 02/22/24 Additional Instructions: FOLLOW-UP WITH PRIMARY CARE PROVIDER IN 1 TO 2 DAYS. TAKE MEDICATIONS DIRECTED HERE IN THE EMERGENCY ROOM. OKAY TO CONTINUE HOME MEDICATIONS UNLESS OTHERWISE DISCUSSED DURING YOUR VISIT IN THE EMERGENCY ROOM TODAY. RETURN TO YOUR NEAREST EMERGENCY ROOM IF SYMPTOMS WORSEN OR IF THERE IS NO IMPROVEMENT. CALL 911 IF YOU NEED IMMEDIATE ASSISTANCE. TAKE TYLENOL OR MOTRIN [id number] NEEDED AND IF NO CONTRAINDICATIONS ARE PRESENT. INCREASE ORAL HYDRATION. A WOUND CULTURE OR URINE CULTURE WAS ORDERED HERE IN THE EMERGENCY ROOM DEPARTMENT PLEASE FOLLOW-UP WITH PRIMARY CARE PROVIDER AND ADVISE THEM TO GET REPEAT PORTS FROM OUR FACILITY. IF YOU HAD ANY GENO WRAP/SPLINTS THAT WERE APPLIED HERE, PLEASE DO NOT REMOVE THEM UNTIL YOU SEE YOUR PRIMARY CARE OR SPECIALTY. FOLLOW A LOW-FAT DIET, WATER FOR FLUIDS ONLY. TAKE OMEPRAZOLE AND CARAFATE DIRECTED DAILY. CALL SURGEON FOR AN APPOINTMENT IN THE NEXT SEVERAL DAYS FOR GALLBLADDER DISEASE. Referrals: MICHAEL POWELL MD (PCP) BRYCE GALO MD Time of Disposition: 17:35 I have reviewed the case, and I agree with, Diagnosis and Plan NALDO PEREIRA NP Feb 22, 2024 12:33
[2024-02-22 13:25] LABS: BASOPHILS # (AUTO) 0.07 K/uL (0.00-0.20); BASOPHILS % (AUTO) 0.9 % (0.0-5.0); EOSINOPHILS # (AUTO) 0.26 K/uL (0.00-0.70); EOSINOPHILS % (AUTO) 3.3 % (0.0-8.0); HEMATOCRIT 41.9 % (42-54); IMMATURE GRANULOCYTE ABSOLUTE 0.06 K/uL (0-1); LYMPHOCYTES # (AUTO) 1.6 K/uL (1.0-4.8); LYMPHOCYTES % (AUTO) 20.4 % (21.0-51.0); MEAN CORPUSCULAR HEMOGLOBIN 30.1 pg (27.0-33.0); MEAN CORPUSCULAR HGB CONC 31.3 g/dL (32.0-36.0); MEAN CORPUSCULAR VOLUME 96.3 fL (79-99); MONOCYTES # (AUTO) 0.9 K/uL (0.1-1.0); MONOCYTES % (AUTO) 10.7 % (3.0-13.0); NEUTROPHILS # (AUTO) 5.1 K/uL (1.8-7.7); NEUTROPHILS % (AUTO) 63.9 % (40.0-77.0); PLATELET COUNT (AUTO) 221 K/uL (130-400); RED BLOOD CELL COUNT(AUTO) 4.35 MIL/uL (4.50-6.20); RED CELL DISTRIBUTION WIDTH 13.6 % (11.0-15.5)
[2024-02-22 13:36] LABS: CREATININE 1.7 mg/dL (0.5-1.3); POTASSIUM 4.3 mmol/L (3.5-5.1)
[2024-02-22] MEDS: 0.9%NACL 1000ML 1,000 ML IV ONE (13:43)
[2024-02-22] MEDS: morPHINE 2 MG SYG IVP ONE (13:43)
[2024-02-22] MEDS: ondanSETRON 4MG INJ IVP ONE (13:43)
[2024-02-22 13:53] LABS: APPEARANCE,URINE CLEAR (CLEAR); BILIRUBIN,URINE NEGATIVE (NEGATIVE); COLOR,URINE LIGHT-YELLOW (YELLOW); GLUCOSE, URINE (UA) >=1000 mg/dL (NEGATIVE); KETONES,URINE NEGATIVE (NEGATIVE); LEUKOCYTE ESTERASE ,URINE NEGATIVE Leu/uL (NEGATIVE); NITRATE,URINE NEGATIVE (NEGATIVE); OCCULT BLOOD,URINE NEGATIVE (NEGATIVE); PROTEIN,URINE 200 mg/dL (NEGATIVE); UROBILINOGEN,URINE 0.2 mg/dL (0.2-1.0)
[2024-02-22 13:54] LABS: ADD UA MICROSCOPIC YES
[2024-02-22 14:34] LABS: RBC,URINE 0-1 /HPF (0-1); SQUAMOUS EPITHELIAL CELL,UR RARE /HPF (0-2); WBC,URINE 0-1 /HPF (0-1)
[2024-02-22] MEDS: PANTOPrazole 40 MG/VIAL IVP ONE (15:18)
[2024-02-22] MEDS: DICYCLOMINE HCL 10 MG/5 ML ML PO ONE (15:18)
[2024-02-22] MEDS: LIDOCAINE HCL 2% VISCOUS 15 ML UDCUP PO ONE (15:18)
[2024-02-22] MEDS: MAG/ALUM/SIMETH 30 ML UDCUP PO ONE (15:18)
--- NOTE | 2024-02-22 15:31 | HMCIMG ---
CT ABDOMEN/PELVIS W/O CONTRAST INDICATION: EPIGASTRIC AND LEFT UPPER QUADRANT PAIN, ELEVATED LIPASE TECHNIQUE: CT ABDOMEN/PELVIS W/O CONTRAST. Oral contrast was not given. Coronal and sagittal reformats were performed. CT was performed with one or more of the following dose reduction techniques: Automated exposure control, adjustment of the mA and/or kV according to the patient's size, or use of the iterative reconstruction technique. Comparison: 12/18/2023 FINDINGS: The noncontrast nature this study limits evaluation of abdominal viscera. No pulmonary consolidation or pleural effusion is seen. There is hepatic steatosis. Distended gallbladder with gallstones. Consider correlation with ultrasound in the left kidney is not visualized. 3.4 cm hypodense focus in the right kidney, incompletely characterized. Consider correlation with ultrasound.. Small calcified granuloma seen in the spleen. Pancreas, and adrenal glands are within normal limits. No hydronephrosis. The urinary bladder is partially collapsed. Reproductive organs are grossly within normal limits for patient's age. No bowel obstruction is seen. Diverticulosis coli without CT evidence of acute diverticulitis. There is a fat-containing umbilical hernia with the hernia sac measuring 5.2 cm. Appendix is normal in caliber. Atherosclerotic changes of the aorta with calcified plaques. Degenerative changes of the spine are seen. IMPRESSION: 1. There is hepatic steatosis. Distended gallbladder with gallstones. Consider correlation with ultrasound in the left kidney is not visualized. 2. 3.4 cm hypodense focus in the right kidney, incompletely characterized. Consider correlation with ultrasound.. Additional findings as described above.
--- NOTE | 2024-02-22 15:41 | EKG ---
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
--- NOTE | 2024-02-22 17:02 | HMCIMG ---
RIBS UNI RT W PA CHEST 3+ VWS REASON: RIGHT LATERAL SUPERIOR CHEST WALL ECCHYMOSIS TENDERNESS STATUS POST FALL . COMPARISON: None TECHNIQUE: Frontal projection of the chest was obtained. 4 images of right ribs were obtained. FINDINGS: No acute pulmonary infiltrates is seen. Poststernotomy changes are seen. Degenerative changes are seen. No acute displaced fracture is seen of right ribs. The heart is not enlarged. IMPRESSION: Findings as described above.
[2024-02-22] MEDS ORDERED: OMEP40CA21 PO (17:36)
[2024-02-22] MEDS ORDERED: SUCR1TAB28 PO (17:36)
[2024-02-22 18:07] VITALS: BP 169/77; PULSE 73; RESP 18; TEMP 98.1; O2SAT 97
== END 2024-02-22 18:24 | disposition home or self-care (01) ==
LOC: EDH 12:26
DX: S20.211A Contusion of right front wall of thorax, initial encounter (principal); K29.00 Acute gastritis without bleeding; K80.20 Calculus of gallbladder without cholecystitis without obstruction; E11.65 Type 2 diabetes mellitus with hyperglycemia; I13.0 Hypertensive heart and chronic kidney disease with heart failure and stage 1 through stage 4 chronic kidney disease, or unspecified chronic kidney disease; E11.22 Type 2 diabetes mellitus with diabetic chronic kidney disease; N18.9 Chronic kidney disease, unspecified; E78.00 Pure hypercholesterolemia, unspecified; I50.9 Heart failure, unspecified; Z79.01 Long term (current) use of anticoagulants; Z79.02 Long term (current) use of antithrombotics/antiplatelets; Z79.82 Long term (current) use of aspirin; Z79.84 Long term (current) use of oral hypoglycemic drugs; Z79.899 Other long term (current) drug therapy; Z95.1 Presence of aortocoronary bypass graft; W18.39XA Other fall on same level, initial encounter; Y93.89 Activity, other specified; Y92.89 Other specified places as the place of occurrence of the external cause; Y99.8 Other external cause status
CPT/HCPCS: 99285; 74176; 96374; 96375; 96361; 84484; 80048; 83690; 85025; 81001; 36415; 71101; 93005; J2270; J7030; J2405; J2470